=== PATIENT | female | born 1935 | race African-American/Black ===

== ENCOUNTER 2020-03-11 11:22 | Inpatient (IN) | payer MEDICARE, OTHER ==
[2020-03-11] VITALS (16 sets, daily range): BP systolic 99–190; BP diastolic 40–80
[~2020-03-11] VITALS: Ht 160 cm; Wt 102.5 kg
[2020-03-11] MEDS: NOREPINEPHRINE VIAL 32 MG in IV DEXTROSE 5% 218 ML IV PRN (11:17)
[~2020-03-11 11:22] MED LIST: ALPR0.5T PO; ASPI-630 PO; ATOR40TA59 PO; BENZ-8 PO; CARV3.1210 PO; CHOL500021 PO; FURO40TA4 PO; PANT20TA2 PO; POTA20TA4 PO; PROP15DR OU; SPIR25TA5 PO; TIMO5DRO26 OD
[2020-03-11] MEDS ORDERED: ATROPINE 0.5 MG/5 ML DISP.SYRINGE. IM ONE ×2 (11:43→11:50)
[2020-03-11] MEDS ORDERED: SODIUM BICARBONATE 50 MEQ/50 ML VIAL. ONE (12:00)
[2020-03-11] MEDS ORDERED: DEXTROSE 50% 25 GM / 50ML DISP.SYRIN. IV ONE (12:00)
[2020-03-11] MEDS ORDERED: CALCIUM CHLORIDE 1,000 MG/10 ML DISP.SYRIN ONE (12:00)
[2020-03-11] MEDS ORDERED: EPINEPHrine SYRINGE 1 MG/10 ML SYRINGE ONE (12:00)
[2020-03-11] MEDS: PHENYLEPHRINE INJ 50 MG in IV NORMAL SALINE 250ML 250 ML IV PRN ×2 (12:11→12:14)
--- NOTE | 2020-03-11 12:20 | RAD ---
Single view chest dated 03/11/2020. Comparison made to 03/09/2020. CLINICAL INDICATION: Intubation. FINDINGS: Single supine portable exam performed. Endotracheal tube tip at mid trachea, unchanged. There is an NG tube coiled in the left upper quadrant, likely within a hiatal hernia or prominent gastric fundus. There is a right-sided dialysis catheter in place, unchanged. There is perihilar airspace disease, mildly increased. There is also right-sided pleural effusion and/or pleural thickening at the right apex, unchanged. No pneumothorax. IMPRESSION: 1. Mild interval increase in bilateral airspace disease, edema versus pneumonia. 2. Right pleural effusion with loculated pleural fluid at the right apex, unchanged. 3. Stable position of lines. Electronically signed by: Demond Fink MD (03/11/2020 12:17 PM) [id number]
[2020-03-11 12:41] LABS: BASO # 0.1 x10^3/uL (0.0-0.2); BASO % 1 % (0-3); EOS # 0.1 x10^3/uL (0.0-0.7); EOS % 1 % (0-3); HEMATOCRIT 22.1 % (36.0-47.0); HEMOGLOBIN 7.2 g/dL (12.0-15.5); LYMPH # 2.1 x10^3/uL (1.0-4.8); LYMPH % 10 % (24-48); MEAN CORPUSCULAR HEMOGLOBIN 29 pg (25-35); MEAN CORPUSCULAR HGB CONC 32 g/dL (31-37); MEAN CORPUSCULAR VOLUME 90 fL (79-100); MONO % 5 % (0-9); NEUT # 18.2 x10^3/uL (1.8-7.7); NEUT % 84 % (31-73); PLATELET COUNT 63 x10^3/uL (140-400); RED BLOOD COUNT 2.45 x10^6/uL (3.50-5.40); WHITE BLOOD COUNT 21.5 x10^3/uL (4.0-11.0)
--- NOTE | 2020-03-11 12:52 | ED.ADGEN ---
Past Medical History Smoking Status: Never Smoker General Adult EDM: Chief Complaint: CPR/FULL ARREST HPI: HPI: Patient is an 85-year-old female who presents to the emergency room while being transported by EMS. Patient was being transferred to [facility] and coded on the way to the ambulance. Patient is in cardiac arrest upon arrival no further history is available Review of Systems: Review of Systems: Unable to obtain Current Medications: Current Medications Medications (Trade) Dose Ordered Sig/Any Start Time Stop Time Status Last Admin Dose Admin Norepinephrine Bitartrate 32 mg/ Dextrose 250 ml @ 0 mls/hr CONT PRN 03/11/20 12:45 Phenylephrine HCl 50 mg/Sodium Chloride 255 ml @ 12.24 mls/ hr CONT PRN 03/11/20 12:00 03/11/20 12:14 12.24 MLS/HR Allergies: Allergies: Allergies Coded Allergies Type Severity Reaction Last Updated Verified No Known Drug Allergies 02/23/20 No Physical Exam: PE: General: unresponsive, toxic appearing, CPR in progress, ET tube in place, severe anasarca HEENT: Normocephalic, atraumatic, no drainage from eyes Neck: Supple, atraumatic, trachea midline Cardiology: No radial/femoral pulses bilaterally, no heart sounds Pulmonary: Bilateral breath sounds Abdomen: soft, swelling Skin: intact, dry, cool Extremities: No deformities Neurology: nonresponsive, nonverbal, no movement, GCS 3 Current Patient Data: Labs: Laboratory Tests Test 03/11/20 12:23 White Blood Count 21.5 x10^3/uL (4.0-11.0) H Red Blood Count 2.45 x10^6/uL (3.50-5.40) L Hemoglobin 7.2 g/dL (12.0-15.5) L Hematocrit 22.1 % (36.0-47.0) L Mean Corpuscular Volume 90 fL (79-100) Mean Corpuscular Hemoglobin 29 pg (25-35) Mean Corpuscular Hemoglobin Concent 32 g/dL (31-37) Red Cell Distribution Width 17.0 % (11.5-14.5) H Platelet Count 63 x10^3/uL (140-400) L Neutrophils (%) (Auto) 84 % (31-73) H Lymphocytes (%) (Auto) 10 % (24-48) L Monocytes (%) (Auto) 5 % (0-9) Eosinophils (%) (Auto) 1 % (0-3) Basophils (%) (Auto) 1 % (0-3) Neutrophils # (Auto) 18.2 x10^3/uL (1.8-7.7) H Lymphocytes # (Auto) 2.1 x10^3/uL (1.0-4.8) Monocytes # (Auto) 1.0 x10^3/uL (0.0-1.1) Eosinophils # (Auto) 0.1 x10^3/uL (0.0-0.7) Basophils # (Auto) 0.1 x10^3/uL (0.0-0.2) Platelet Estimate Pending Laboratory Tests 03/11/20 12:23 Vital Signs: Vital Signs Date Time Temp Pulse Resp B/P (MAP) Pulse Ox O2 Delivery O2 Flow Rate FiO2 03/11/20 11:59 100 Ventilator EKG: EKG: [] Heart Score: Risk Factors: Risk Factors: DM, Current or recent (<one month) smoker, HTN, HLP, family history of CAD, obesity. Risk Scores: Score 0 - 3: 2.5% MACE over next 6 weeks - Discharge Home Score 4 - 6: 20.3% MACE over next 6 weeks - Admit for Clinical Observation Score 7 - 10: 72.7% MACE over next 6 weeks - Early Invasive Strategies Radiology/Procedures: Radiology/Procedures: [] Course & Med Decision Making: Course & Med Decision Making Pertinent Labs and Imaging studies reviewed. (See chart for details) Patient is a 85-year-old female who presents to the emergency room with CPR in progress. Patient was admitted 3 weeks ago and had a massive stroke. Neurology has evaluated her and feel that care is futile. CPR was performed here in the emergency room and she received 2 rounds of epinephrine, amiodarone, and was shocked once. She was in ventricular fibrillation upon arrival. We will continue her norepinephrine drip and then start phenylephrine. She was given atropine twice in the emergency room due to significant bradycardia. Patient was discussed with Dr. Garcia who will admit her back to the ICU Dragon Disclaimer: Dragon Disclaimer: This electronic medical record was generated, in whole or in part, using a voice recognition dictation system. Critical Care Time Critical Care: Authorized and Performed by: Levi Nazario MD Total critical care time: approximately 45 minutes Due to a high probability of clinically significant, life threatening deterioration, the patient required my highest level of preparedness to intervene emergently and I personally spent this critical care time directly and personally managing the patient. This critical care time included obtaining a history; examining the patient; pulse oximetry; ventilator management if necessary; ordering and review of studies; arranging urgent treatment with development of a management plan; evaluation of patient's response to treatment; frequent reassessment; discussion with patient/family; and, discussions with ot her providers. This critical care time was performed to assess and manage the high probability of imminent, life-threatening deterioration that could result in multi-organ failure. It was exclusive of separately billable procedures and treating other patients and teaching time. Please see MDM section and the rest of the note for further information on patient assessment and treatment. Departure Departure Impression: Primary Impression: Cardiac arrest Disposition: 09 ADMITTED INPT THIS HOSP Condition: IMPROVED Referrals: UNKNOWN PCP NAME (PCP) LEVI NAZARIO MD Mar 11, 2020 12:52
[2020-03-11 13:33] LABS: CALCIUM 7.9 mg/dL (8.5-10.1); CREATININE 3.6 mg/dL (0.6-1.0); GFR 14.5; POTASSIUM 4.9 mmol/L (3.5-5.1)
--- NOTE | 2020-03-11 14:00 | NUR ---
Pt admitted to room 103 from the ED, s/p code on discharge to [facility]. Pt is SR on the monitor, Levo and Martell infusing per IV pump. Pittman and Rectal tube in place. OG connected to low intermittent suction with bloody drainage. Right IJ central line in place and functioning. Family at the bedside.
[2020-03-11] MEDS ORDERED: INFLUENZA VAX SCREEN BY RX. MC ONE (14:45)
[2020-03-11 14:48] LABS: % BANDS 26 % (0-9); % EOS 1 % (0-5); % LYMPHS 14 % (24-48); % METAS 5 % (0-0); % MONOS 3 % (0-10); % MYELOS 2 % (0-0); % SEGS 49 % (35-66); NUCLEATED RBC 25
[2020-03-11 14:51] LABS: ANISOCYTOSIS SLIGHT; PLT ESTIMATE DECREASED (ADEQUATE); POLYCHROMASIA SLIGHT; SCHISTOCYTES FEW; TOXIC GRANULATION MOD; TOXIC VACUOLATION MOD
--- NOTE | 2020-03-11 15:00 | NUR ---
Dr. Luke notified of pts admission, no new orders received.
[2020-03-11] MEDS: fentaNYL PF VIAL 100 MCG/2 ML VIAL IVP PRN (15:16)
--- NOTE | 2020-03-11 15:30 | NUR ---
Dr. Bunn notified of consult, post code status with v-fib, and 2 pressors infusing. No new orders received.
[2020-03-11] MEDS ORDERED: PIP/TAZO PER PHARMACY MC PRN (16:15)
[2020-03-11] MEDS ORDERED: MINERAL OIL/PETROLATUM,WHITE OPHTH OINT 3.5GM TUBE. OU PRN (16:15)
[2020-03-11] MEDS ORDERED: POLYVINYL ALCOHOL 1.4% OPHTH SOLUTION 15ML BOTTLE. OU PRN (16:15)
[2020-03-11] MEDS ORDERED: EPINEPHrine VIAL 5 MG in IV NORMAL SALINE 250ML 250 ML IV PRN (16:15)
[2020-03-11] MEDS ORDERED: IV DEXTROSE 5% 250 ML BAG. IV PRN (16:15)
[2020-03-11 16:23] LABS: BASE EXCESS ABG -8 mmol/L (-3-3); HCO3 ABG 19 mmol/L (21-28); PCO2 ABG 40 mmHg (35-46); PO2 ABG 95 mmHg (65-108); SAT O2 ABG 96 % (92-99)
[2020-03-11 16:25] LABS: FIO2 ABG 60%
[2020-03-11] MEDS ORDERED: INSULIN LISPRO 300 UNITS/3 ML VIAL. SQ SCH (17:00)
[2020-03-11] MEDS: PIPERACILLIN/TAZOBACTAM 2.25 GM in IV NORMAL SALINE 50ML 50 ML IV SCH ×2 (18:13→22:32)
--- NOTE | 2020-03-11 18:38 | EKG ---
[facility] [address] [place] [address] Test Date: 2020-03-11 Test Time: 12:01:32 Pat Name: JORDAN JOSHI Department: Room: Gender: F Energy Efficiency Specialist: : [id number] Requested By: LEVI HOLLEY Order Number: [id number] Reading MD: Measurements Intervals [place] Rate: 54 P: OK: QRS: 129 QRSD: 68 T: 144 QT: 422 QTc: 402 Interpretive Statements IRREGULAR RHYTHM, NO P-WAVE FOUND ABNORMAL RIGHT AXIS DEVIATION LOW VOLTAGE CONSIDER RIGHT VENTRICULAR HYPERTROPHY QRS(T) CONTOUR ABNORMALITY CONSISTENT WITH ANTEROSEPTAL INFARCT AGE UNDETERMINED ST & T ABNORMALITY, CONSIDER HIGH LATERAL ISCHEMIA OR LEFT VENTRICULAR STRAIN ABNORMAL ECG RI6.02 No previous ECG available for comparison
[2020-03-11] MEDS: TIMOLOL 0.5% OPHTH SOLUTION 5ML BOTTLE. OD SCH (20:50)
[2020-03-11] MEDS ORDERED: BENZONATATE 100 MG CAPSULE. PO SCH (21:00)
[2020-03-11] MEDS ORDERED: LACTOBACILLUS RHAMNOSUS GG 1 CAPSULE. PO SCH (21:00)
[2020-03-12] VITALS (26 sets, daily range): BP systolic 91–164; BP diastolic 45–83
[2020-03-12] MEDS: NOREPINEPHRINE VIAL 32 MG in IV DEXTROSE 5% 218 ML IV PRN ×2 (00:13→23:59)
--- NOTE | 2020-03-12 05:49 | PDOC ---
PULMONARY PROGRESS NOTES DATE: 03/12/20 TIME: 05:40 Subjective had v fib in ambulance on her way to [facility] yesterday was taken to er on vent no sedation not responsive small ett secretion on levo Vitals Vital Signs Date Time Temp Pulse Resp B/P (MAP) Pulse Ox O2 Delivery O2 Flow Rate FiO2 03/12/20 05:00 86 27 131/60 (83) 100 Ventilator 03/12/20 04:00 98.0 98.0 03/11/20 11:22 15.0 Comments ros unable to do intubated not responsive HEENT: Other (nc at perrl nose clear orally intubated neck no lad no thyromegaly) Lungs: Crackles Cardiovascular: S1, S2 Abdomen: Soft, Non-tender, Other (no mass) Extremities: Other (++ edema) Skin: Warm Labs Laboratory Tests Test 03/11/20 12:23 03/11/20 12:32 03/11/20 13:12 03/11/20 16:25 White Blood Count 21.5 x10^3/uL (4.0-11.0) Red Blood Count 2.45 x10^6/uL (3.50-5.40) Hemoglobin 7.2 g/dL (12.0-15.5) Hematocrit 22.1 % (36.0-47.0) Mean Corpuscular Volume 90 fL (79-100) Mean Corpuscular Hemoglobin 29 pg (25-35) Mean Corpuscular Hemoglobin Concent 32 g/dL (31-37) Red Cell Distribution Width 17.0 % (11.5-14.5) Platelet Count 63 x10^3/uL (140-400) Neutrophils (%) (Auto) 84 % (31-73) Lymphocytes (%) (Auto) 10 % (24-48) Monocytes (%) (Auto) 5 % (0-9) Eosinophils (%) (Auto) 1 % (0-3) Basophils (%) (Auto) 1 % (0-3) Neutrophils # (Auto) 18.2 x10^3/uL (1.8-7.7) Lymphocytes # (Auto) 2.1 x10^3/uL (1.0-4.8) Monocytes # (Auto) 1.0 x10^3/uL (0.0-1.1) Eosinophils # (Auto) 0.1 x10^3/uL (0.0-0.7) Basophils # (Auto) 0.1 x10^3/uL (0.0-0.2) Segmented Neutrophils % 49 % (35-66) Band Neutrophils % 26 % (0-9) Lymphocytes % 14 % (24-48) Monocytes % 3 % (0-10) Eosinophils % 1 % (0-5) Metamyelocytes % 5 % (0-0) Myelocytes % 2 % (0-0) Nucleated Red Blood Cells 25 Toxic Granulation Mod Toxic Vacuolation Mod Platelet Estimate Decreased (ADEQUATE) Large Platelets Few Polychromasia Slight Anisocytosis Slight Schistocytes Few Mixed Venous Blood pH 7.19 Mixed Venous Blood PCO2 41 mmHg Mixed Venous Blood PO2 < 42 mmHg Mixed Venous Blood HCO3 16 mmol/L Mixed Venous Blood Base Excess -12 mmol/L Mixed Venous Blood O2 Saturation 61 % FiO2 100/vent 60% Sodium Level 130 mmol/L (136-145) Potassium Level 4.9 mmol/L (3.5-5.1) Chloride Level 91 mmol/L (98-107) Carbon Dioxide Level 20 mmol/L (21-32) Anion Gap 19 (6-14) Blood Urea Nitrogen 101 mg/dL (7-20) Creatinine 3.6 mg/dL (0.6-1.0) Estimated GFR (Cockcroft-Gault) 14.5 Glucose Level 224 mg/dL (70-99) Calcium Level 7.9 mg/dL (8.5-10.1) O2 Saturation 96 % (92-99) Arterial Blood pH 7.28 (7.35-7.45) Arterial Blood pCO2 at Patient Temp 40 mmHg (35-46) Arterial Blood pO2 at Patient Temp 95 mmHg (65-108) Arterial Blood HCO3 19 mmol/L (21-28) Arterial Blood Base Excess -8 mmol/L (-3-3) Test 03/11/20 17:13 Glucose (Fingerstick) 221 mg/dL (70-99) Laboratory Tests Test 03/11/20 12:23 03/11/20 12:32 03/11/20 13:12 03/11/20 16:25 White Blood Count 21.5 x10^3/uL (4.0-11.0) Red Blood Count 2.45 x10^6/uL (3.50-5.40) Hemoglobin 7.2 g/dL (12.0-15.5) Hematocrit 22.1 % (36.0-47.0) Mean Corpuscular Volume 90 fL (79-100) Mean Corpuscular Hemoglobin 29 pg (25-35) Mean Corpuscular Hemoglobin Concent 32 g/dL (31-37) Red Cell Distribution Width 17.0 % (11.5-14.5) Platelet Count 63 x10^3/uL (140-400) Neutrophils (%) (Auto) 84 % (31-73) Lymphocytes (%) (Auto) 10 % (24-48) Monocytes (%) (Auto) 5 % (0-9) Eosinophils (%) (Auto) 1 % (0-3) Basophils (%) (Auto) 1 % (0-3) Neutrophils # (Auto) 18.2 x10^3/uL (1.8-7.7) Lymphocytes # (Auto) 2.1 x10^3/uL (1.0-4.8) Monocytes # (Auto) 1.0 x10^3/uL (0.0-1.1) Eosinophils # (Auto) 0.1 x10^3/uL (0.0-0.7) Basophils # (Auto) 0.1 x10^3/uL (0.0-0.2) Segmented Neutrophils % 49 % (35-66) Band Neutrophils % 26 % (0-9) Lymphocytes % 14 % (24-48) Monocytes % 3 % (0-10) Eosinophils % 1 % (0-5) Metamyelocytes % 5 % (0-0) Myelocytes % 2 % (0-0) Nucleated Red Blood Cells 25 Toxic Granulation Mod Toxic Vacuolation Mod Platelet Estimate Decreased (ADEQUATE) Large Platelets Few Polychromasia Slight Anisocytosis Slight Schistocytes Few Mixed Venous Blood pH 7.19 Mixed Venous Blood PCO2 41 mmHg Mixed Venous Blood PO2 < 42 mmHg Mixed Venous Blood HCO3 16 mmol/L Mixed Venous Blood Base Excess -12 mmol/L Mixed Venous Blood O2 Saturation 61 % FiO2 100/vent 60% Sodium Level 130 mmol/L (136-145) Potassium Level 4.9 mmol/L (3.5-5.1) Chloride Level 91 mmol/L (98-107) Carbon Dioxide Level 20 mmol/L (21-32) Anion Gap 19 (6-14) Blood Urea Nitrogen 101 mg/dL (7-20) Creatinine 3.6 mg/dL (0.6-1.0) Estimated GFR (Cockcroft-Gault) 14.5 Glucose Level 224 mg/dL (70-99) Calcium Level 7.9 mg/dL (8.5-10.1) O2 Saturation 96 % (92-99) Arterial Blood pH 7.28 (7.35-7.45) Arterial Blood pCO2 at Patient Temp 40 mmHg (35-46) Arterial Blood pO2 at Patient Temp 95 mmHg (65-108) Arterial Blood HCO3 19 mmol/L (21-28) Arterial Blood Base Excess -8 mmol/L (-3-3) Test 03/11/20 17:13 Glucose (Fingerstick) 221 mg/dL (70-99) Medications Active Scripts Medications Dose Route/Sig Max Daily Dose Days Date Category Xanax (Alprazolam) 0.5 Mg Tablet 0.5 Mg PO HS 02/23/20 Reported D3-50 (Cholecalciferol (Vitamin D3)) 50,000 Unit Capsule 50,000 Unit PO 2X/WEEK 02/23/20 Reported Atorvastatin Calcium 40 Mg Tablet 40 Mg PO HS 02/23/20 Reported Furosemide 40 Mg Tablet 40 Mg PO DAILY 02/23/20 Reported Carvedilol (Carvedilol) 3.125 Mg Tablet 3.125 Mg PO BIDWMEALS 02/23/20 Reported Systane 0.3-0.4% Eye Drops (Propylene Glycol/Peg 400) 15 Ml Drops 1 Drop OU PRN Q2HR PRN 02/23/20 Reported Betimol (Timolol) 5 Ml Drops 1 Drop OD BID 02/23/20 Reported Benzonatate 100 Mg Capsule 100 Mg PO TID 02/23/20 Reported Protonix (Pantoprazole Sodium) 20 Mg Tablet.dr 20 Mg PO DAILY 02/23/20 Reported Spironolactone 25 Mg Tablet 25 Mg PO DAILY 02/23/20 Reported Aspirin 81 Mg Tab.chew 81 Mg PO DAILY 02/23/20 Reported Klor-Con M20 (Potassium Chloride) 20 Meq Tab.er.prt 20 Meq PO DAILY 02/23/20 Reported Comments cxr reviewed 1. Mild interval increase in bilateral airspace disease, edema versus pneumonia. 2. Right pleural effusion with loculated pleural fluid at the right apex, unchanged. ett ok Impression . Impression . IMPRESSION: Status post cardiopulmonary arrest, non-ST segment elevation MO. cp arrest at 2 am 03/05 11/7 s/p v fib Acute on chronic hypoxemic respiratory failure. CT chest revealing severe bronchiectasis, no evidence of lung masses. Acute on chronic exacerbation of bronchiectasis. Possible bacterial pneumonia. Elevated troponin and BNP. Acute on chronic renal failure. History of tobacco use in remission. Encephalopathy, possible anoxic COVID-19 negative Plan . Plan . Continue current vent support Fi02 40% and PEEP 5 CXR and ABG reviewed, no changes at this time Continue vasopressive medications to keep MAP above 60, off EPI remains on levo Follow nephrology recs -- began HD 03/07 -- remains on bicarb gtt ? need for hd Follow GI recs-- plan for PEG tube---on hold 2/2 hemodynamic instability Follow surgery recs- trach on hold 2/2 hemodynamic instability Follow ID recs for ABX Monitor LFT-- hypoxic hepatitis 2/2 cardiac arrest Follow neurology recs---Extensive scattered areas of acute infarction throughout the cerebral and cerebellar hemispheres, the largest of which is seen involving the left parietal lobe. Hypoperfusion from the cardiac event. Continue tube feeding for nutritional support to [facility] today DVT/GI prophylaxis:protonix/ of A/C 2/2 low plt count Discussed with RN and RT, very poor prognosis, no expected to survive SOTERO SWANSON MD Mar 12, 2020 05:48
[2020-03-12] MEDS: PIPERACILLIN/TAZOBACTAM 2.25 GM in IV NORMAL SALINE 50ML 50 ML IV SCH (05:50)
[2020-03-12] MEDS: fentaNYL PF VIAL 100 MCG/2 ML VIAL IVP PRN ×2 (07:16→19:55)
--- NOTE | 2020-03-12 07:30 | HP ---
ADMIT DATE: HISTORY OF PRESENT ILLNESS: The patient is an 85-year-old -[place] female patient who was accepted at [facility]. She presented to the Emergency Room while being transported by EMS. She was being transferred to [facility] and coded in the way to the ambulance. The patient was in cardiac arrest upon arrival and no further history at the time. She was basically resuscitated. CPR was performed in the Emergency Room and she received 2 rounds of epinephrine, amiodarone and was shocked once. She was in atrial fibrillation upon arrival. She was continued on epinephrine drip and started phenylephrine. She was given atropine twice in the Emergency Room due to significant bradycardia. The patient was basically admitted back again to the ICU to continue on mechanical ventilation, continue with pressor support, nutritional support. The patient was evaluated by neurologist and basically she has severe hypoxic encephalopathy and multiple infarcts. The care was futile; however, the family is not willing to change her code status. PAST MEDICAL HISTORY: Significant for hypertension, hyperlipidemia, type 2 diabetes mellitus, chronic obstructive pulmonary disease. She is also blind in her left eye and has blurred vision in the right eye. 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 On her previous admission, she coded twice and was diagnosed with non-ST segment elevation myocardial infarction and has been consistently intubated and mechanically ventilated. She also developed acute on chronic kidney injury that required hemodialysis. The patient was actually accepted at [facility] and was on her way there to continue with mechanical ventilation and hemodialysis; however, she unfortunately coded on her way and was taken from the ambulance to the Emergency Room of [facility]. PAST SURGICAL HISTORY: Significant for appendectomy, tonsillectomy, left hip surgery. ALLERGIES: She has no known drug allergies. FAMILY HISTORY: She has 4 sisters younger and she has 10 brothers. SOCIAL HISTORY: She is , has 2 sons and 1 daughter, 2 of her children . She quit smoking 31 years ago. Again, she was also a heavy drinker, but quit years ago. 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 Prior to admission, she used to live with her son. MEDICATIONS: She is currently on following medications: She is on Protonix 40 mg IV daily, aspirin 81 mg once a day, timolol maleate 1 drop to both eyes twice a day. She continues to be on Zosyn 2.25 grams IV every 8 hours. She is on Humalog insulin as insulin sliding scale every 6 hours. She is on epinephrine to maintain mean arterial pressure about 65 mmHg. She is on artificial tears 1 drop to both eyes every 15 minutes as needed. PHYSICAL EXAMINATION: GENERAL: When I saw her this morning, she was resting slightly propped up in bed. She was pale, but no jaundice, cyanosis or thyromegaly. No jugular venous distention, but generalized anasarca. VITAL SIGNS: Her heart rate was 90, blood pressure was 125/68, temperature was 98, respiratory rate was 30 and oxygen saturation was 100% on FiO2 of 60%. HEAD, EYES, EARS, NOSE AND THROAT: Showed normocephalic, atraumatic. NECK: Supple. She has orotracheal and orogastric tube in place. HEART: Showed normal first and second heart sounds. No gallop or murmur. CHEST: Clear to auscultation. No crepitation or rhonchi. ABDOMEN: Distended, soft, nontender. NEUROLOGIC: She is encephalopathic. She has so far 3 cardiac arrests and her MRI on her last admission showed that she has multiple scattered infarcts. LABORATORY DATA: Her lab work as of yesterday showed a white cell count of 21,500, hemoglobin 7.2, hematocrit 22, MCV 90 and platelet count of 63,000. Her chemistry showed a serum sodium 130, potassium 4.9, chloride 91, bicarbonate 20, anion gap of 19, BUN 101, creatinine was 3.6, estimated GFR was 14 mL per minute. Her glucose was 224 and calcium was 7.9. Her blood gases showed a pH of 7.28, her pCO2 of 40, pO2 of 95, bicarbonate 19 and oxygen saturation was 96% on FiO2 of 60%. ASSESSMENT AND PLAN: 1. In summary, this is an 85-year-old -[place] female patient with a third cardiac arrest from which she was successfully resuscitated. She coded while in the ambulance and immediately CPR was started and she was admitted through the Emergency Room where the CPR continued. She has received 2 rounds of epinephrine, amiodarone and was shocked once. She was in ventricular fibrillation upon arrival. She was continued on epinephrine and phenylephrine and she received atropine twice and was readmitted back to the ICU. 2. The patient has acute kidney injury for which she was on hemodialysis. 3. Chronic kidney disease, stage 2-3. 4. Hyponatremia with the serum sodium of 130 mEq per liter. 5. Hyperkalemia, resolved. 6. Acute respiratory failure. The patient continues to be intubated, mechanically ventilated. She is off sedation for more than 6 days now and she continued to be encephalopathic, likely severe anoxic encephalopathy as well as multiple infarcts. 7. Severe acidemia that has resolved. 8. Shock liver with markedly elevated liver enzymes that were trending down. Today's labs still pending. 9. The patient is hypotensive and continued to be on Levophed. 10. Given that she has been unstable and continued to be on pressor support, she is not a candidate for tracheostomy and gastrostomy tube placement. PLAN: To obviously continue with mechanical ventilation. Continue nutritional support. Continue with Levophed and epinephrine. We will repeat all her lab work and consult the mechanic helper as well as the farm operations manager. OLAF MAXWELL MD DR: DARIAN/nataly JOB#: [id number] / [id number]
[2020-03-12 07:39] LABS: BASO % 0 % (0-3); EOS # 0.1 x10^3/uL (0.0-0.7); EOS % 0 % (0-3); HEMATOCRIT 22.7 % (36.0-47.0); HEMOGLOBIN 7.4 g/dL (12.0-15.5); LYMPH # 1.4 x10^3/uL (1.0-4.8); LYMPH % 7 % (24-48); MEAN CORPUSCULAR HEMOGLOBIN 29 pg (25-35); MEAN CORPUSCULAR HGB CONC 33 g/dL (31-37); MEAN CORPUSCULAR VOLUME 89 fL (79-100); MONO # 1.2 x10^3/uL (0.0-1.1); MONO % 6 % (0-9); NEUT # 16.3 x10^3/uL (1.8-7.7); NEUT % 86 % (31-73); PLATELET COUNT 47 x10^3/uL (140-400); RED BLOOD COUNT 2.55 x10^6/uL (3.50-5.40); RED CELL DISTRIBUTION WIDTH 17.4 % (11.5-14.5)
[2020-03-12] MEDS: INSULIN LISPRO 300 UNITS/3 ML VIAL. SQ SCH ×3 (07:45→17:49)
[2020-03-12 08:12] LABS: ALBUMIN 1.8 g/dL (3.4-5.0); ALBUMIN/GLOBULIN RATIO 0.7 (1.0-1.7); CREATININE 3.7 mg/dL (0.6-1.0); GFR 14.1; POTASSIUM 4.8 mmol/L (3.5-5.1); TOTAL BILIRUBIN 3.2 mg/dL (0.2-1.0); TOTAL PROTEIN 4.3 g/dL (6.4-8.2)
--- NOTE | 2020-03-12 08:18 | PDOC ---
Infectious Disease Note Subjective: Subjective 85-year-old female who was accepted at [facility] ,transfer from [facility] ICU yesterday. She went into cardiac arrest on her way to the ambulance .CPR was performed at [facility] ED . She was resuscitated. Patient is readmitted back to [facility] ICU again, remains on mechanical ventilation. Unresponsive. Remains on pressure support. Vital Signs: Vital Signs Vital Signs Date Time Temp Pulse Resp B/P (MAP) Pulse Ox O2 Delivery O2 Flow Rate FiO2 03/12/20 07:16 28 100 Ventilator 03/12/20 07:00 84 131/55 (80) 03/12/20 04:00 98.0 98.0 03/11/20 11:22 15.0 Physical Exam: PHYSICAL EXAM GEN: Intubated, unresponsive HEENT: normocephalic atraumatic. ETT, NG tube in place. NECK: Supple. IJ HDC catheter in place. HEART: S1, S2. Tachycardia, no murmurs LUNGS: Decreased breath sounds at the bases with few crackles. ABDOMEN: Soft, nontender, nondistended. GENITOURINARY: Pittman removed rectal tube in place. EXTREMITIES: No cyanosis. + edema present NEUROLOGIC: Intubated. DERMATOLOGIC: Warm, dry. No generalized rash. Medications: Inpatient Meds: Current Medications Medications (Trade) Dose Ordered Sig/Any Start Time Stop Time Status Last Admin Dose Admin Aspirin (Aspirin Chewable) 81 mg [id number] 03/12/20 08:00 Atropine Sulfate (ATROPINE 0.5mg SYRINGE) 0.5 mg 1X ONCE 03/11/20 11:43 03/11/20 18:05 DC 03/11/20 11:43 0.5 MG Benzonatate (Tessalon Perle) 100 mg [id number] 03/11/20 21:00 03/11/20 16:13 DC Daptomycin 440 mg/ Sodium Chloride 50 ml @ 100 mls/hr QODAY 03/12/20 09:00 Dextrose (Dextrose 50%-Water Syringe) 12.5 gm PRN Q15MIN PRN 03/11/20 16:15 Dextrose (Iv Dextrose 5%) 250 ml PRN Q15MIN PRN 03/11/20 16:15 Epinephrine HCl 5 mg/Sodium Chloride 255 ml @ 32.956 mls/ hr CONT PRN 03/11/20 16:15 Ergocalciferol (Vitamin D2) 50,000 unit QSA 03/18/20 16:00 03/11/20 16:14 DC Fentanyl Citrate (Fentanyl 2ml Vial) 25 mcg PRN Q2HR PRN 03/11/20 15:00 03/12/20 07:16 25 MCG Glycerin/ Hypromellose/ Polyethylene (Artificial Tears) 1 drop PRN Q15MIN PRN 03/11/20 16:15 Info (FLU VACCINE SCREEN per RX) 1 each 1X ONCE 03/11/20 14:45 03/11/20 14:46 UNV Insulin Human Lispro (HumaLOG) 0-7 UNITS Q6HRS 03/12/20 07:45 Lactobacillus Rhamnosus (Culturelle) 1 cap BID 03/11/20 21:00 03/11/20 16:14 DC Multi-Ingred Cream/Lotion/Oil/ Oint (Artificial Tears Eye Ointment) 1 rebecca PRN Q1HR PRN 03/11/20 16:15 Norepinephrine Bitartrate 32 mg/ Dextrose 250 ml @ 0 mls/hr CONT PRN 03/11/20 12:45 03/12/20 00:13 7.573 MLS/HR Pantoprazole Sodium (PROTONIX VIAL for IV PUSH) 40 mg DAILY 03/12/20 09:00 Phenylephrine HCl 50 mg/Sodium Chloride 255 ml @ 12.24 mls/ hr CONT PRN 03/11/20 12:00 03/11/20 12:14 12.24 MLS/HR Piperacillin Sod/ Tazobactam Sod (Zosyn Per Pharmacy) 1 each PRN DAILY PRN 03/11/20 16:15 Piperacillin Sod/ Tazobactam Sod 2.25 gm/Sodium Chloride 50 ml @ 100 mls/hr Q8HRS 03/11/20 17:00 03/12/20 05:50 100 MLS/HR Timolol Maleate (Timoptic 0.5% [facility]) 1 drop BID 03/11/20 21:00 03/11/20 20:50 1 DROP Labs: Lab Laboratory Tests Test 03/11/20 12:23 03/11/20 12:32 03/11/20 13:12 03/11/20 16:25 White Blood Count 21.5 x10^3/uL (4.0-11.0) Red Blood Count 2.45 x10^6/uL (3.50-5.40) Hemoglobin 7.2 g/dL (12.0-15.5) Hematocrit 22.1 % (36.0-47.0) Mean Corpuscular Volume 90 fL (79-100) Mean Corpuscular Hemoglobin 29 pg (25-35) Mean Corpuscular Hemoglobin Concent 32 g/dL (31-37) Red Cell Distribution Width 17.0 % (11.5-14.5) Platelet Count 63 x10^3/uL (140-400) Neutrophils (%) (Auto) 84 % (31-73) Lymphocytes (%) (Auto) 10 % (24-48) Monocytes (%) (Auto) 5 % (0-9) Eosinophils (%) (Auto) 1 % (0-3) Basophils (%) (Auto) 1 % (0-3) Neutrophils # (Auto) 18.2 x10^3/uL (1.8-7.7) Lymphocytes # (Auto) 2.1 x10^3/uL (1.0-4.8) Monocytes # (Auto) 1.0 x10^3/uL (0.0-1.1) Eosinophils # (Auto) 0.1 x10^3/uL (0.0-0.7) Basophils # (Auto) 0.1 x10^3/uL (0.0-0.2) Segmented Neutrophils % 49 % (35-66) Band Neutrophils % 26 % (0-9) Lymphocytes % 14 % (24-48) Monocytes % 3 % (0-10) Eosinophils % 1 % (0-5) Metamyelocytes % 5 % (0-0) Myelocytes % 2 % (0-0) Nucleated Red Blood Cells 25 Toxic Granulation Mod Toxic Vacuolation Mod Platelet Estimate Decreased (ADEQUATE) Large Platelets Few Polychromasia Slight Anisocytosis Slight Schistocytes Few Mixed Venous Blood pH 7.19 Mixed Venous Blood PCO2 41 mmHg Mixed Venous Blood PO2 < 42 mmHg Mixed Venous Blood HCO3 16 mmol/L Mixed Venous Blood Base Excess -12 mmol/L Mixed Venous Blood O2 Saturation 61 % FiO2 100/vent 60% Sodium Level 130 mmol/L (136-145) Potassium Level 4.9 mmol/L (3.5-5.1) Chloride Level 91 mmol/L (98-107) Carbon Dioxide Level 20 mmol/L (21-32) Anion Gap 19 (6-14) Blood Urea Nitrogen 101 mg/dL (7-20) Creatinine 3.6 mg/dL (0.6-1.0) Estimated GFR (Cockcroft-Gault) 14.5 Glucose Level 224 mg/dL (70-99) Calcium Level 7.9 mg/dL (8.5-10.1) O2 Saturation 96 % (92-99) Arterial Blood pH 7.28 (7.35-7.45) Arterial Blood pCO2 at Patient Temp 40 mmHg (35-46) Arterial Blood pO2 at Patient Temp 95 mmHg (65-108) Arterial Blood HCO3 19 mmol/L (21-28) Arterial Blood Base Excess -8 mmol/L (-3-3) Test 03/11/20 17:13 03/12/20 07:00 Glucose (Fingerstick) 221 mg/dL (70-99) White Blood Count 19.0 x10^3/uL (4.0-11.0) Red Blood Count 2.55 x10^6/uL (3.50-5.40) Hemoglobin 7.4 g/dL (12.0-15.5) Hematocrit 22.7 % (36.0-47.0) Mean Corpuscular Volume 89 fL (79-100) Mean Corpuscular Hemoglobin 29 pg (25-35) Mean Corpuscular Hemoglobin Concent 33 g/dL (31-37) Red Cell Distribution Width 17.4 % (11.5-14.5) Platelet Count 47 x10^3/uL (140-400) Neutrophils (%) (Auto) 86 % (31-73) Lymphocytes (%) (Auto) 7 % (24-48) Monocytes (%) (Auto) 6 % (0-9) Eosinophils (%) (Auto) 0 % (0-3) Basophils (%) (Auto) 0 % (0-3) Neutrophils # (Auto) 16.3 x10^3/uL (1.8-7.7) Lymphocytes # (Auto) 1.4 x10^3/uL (1.0-4.8) Monocytes # (Auto) 1.2 x10^3/uL (0.0-1.1) Eosinophils # (Auto) 0.1 x10^3/uL (0.0-0.7) Basophils # (Auto) 0.0 x10^3/uL (0.0-0.2) Objective: Assessment: Status post cardiac arrest x3 , last March 11 Acute hypoxic respiratory failure intubated Non-STEMI Encephalopathy likely anoxic Extensive acute cerebral infarction Leukocytosis likely reactive Anemia status post blood transfusion Thrombocytopenia History of COPD with chronic hypoxic respiratory failure CT with the bronchiectatic changes SHERMAN on CKD on HD Electrolyte imbalance Severe protein calorie malnutrition History of dementia Skin breakdown at multiple areas Cephalic vein thrombosis left upper extremity Plan: Plan of Care Change Zosyn to Merrem Continue Daptomycin Start daptomycin C. difficile negative Leukocytosis has likely reactive component due to anemia, cephalic vein thrombosis Continue supportive care. local wound care Critically ill Overall prognosis very poor D/W Daughter and son at bedside Discussed with nursing staff VESNA HATCH MD Mar 12, 2020 08:18
[2020-03-12 08:42] LABS: BASE EXCESS ABG -6 mmol/L (-3-3); HCO3 ABG 19 mmol/L (21-28); PCO2 ABG 34 mmHg (35-46); PO2 ABG 134 mmHg (65-108); SAT O2 ABG 98 % (92-99)
[2020-03-12] MEDS: ASPIRIN CHEWABLE 81 MG TABLET. PO SCH (08:46)
[2020-03-12] MEDS: PANTOPRAZOLE IV PUSH 40 MG VIAL. IVP SCH (08:46)
[2020-03-12 08:52] LABS: FIO2 ABG 60/VENT
[2020-03-12] MEDS ORDERED: DAPTOmycin (GENERIC) IVPB 440 MG in IV NORMAL SALINE 50ML 50 ML IV SCH (09:00)
[2020-03-12] MEDS: MEROPENEM 500 MG in IV NORMAL SALINE 50ML 50 ML IV SCH (10:05)
--- NOTE | 2020-03-12 10:52 | PDOC ---
Provider Note Date of Service: DATE: 03/12/20 TIME: 10:51 Provider Note Reviewed events of yesterday and prior extensive chart notes. 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 (patient has no meaningful neurologic recovery at this time, lack of ST changes and no significant hemodynamic instability) I discussed with son and daughter at bedside. They will continue current ICU support. Pls call with any further questions. Justifications for Admission Other Justification TARA GARCIA MD Mar 12, 2020 10:52
--- NOTE | 2020-03-12 12:12 | PDOC ---
DATE OF SERVICE DATE: 03/12/20 TIME: 12:12 SUBJECTIVE ROS She was accepted at [facility] ,transferred from [facility] ICU yesterday. She went into cardiac arrest on her way to the ambulance .CPR was performed at [facility] ED . She was resuscitated. Patient is readmitted back to [facility] ICU again, remains on mechanical ventilation. Unresponsive , was on 2 pressors yesterday. Currently on one pressor OBJECTIVE Vital Signs Vital Signs Date Time Temp Pulse Resp B/P (MAP) Pulse Ox O2 Delivery O2 Flow Rate FiO2 03/12/20 11:38 98 Ventilator 03/12/20 11:00 90 27 120/61 (80) 03/12/20 08:00 97.8 97.8 03/11/20 11:22 15.0 I & 0 Intake and Output 03/12/20 06:59 Intake Total 701 ml Output Total 700 ml Balance 1 ml Intake IV Total 403 ml Other 298 ml Output Urine Total 0 ml Stool Total 700 ml PHYSICAL EXAM Physical Exam GEN: Intubated, unresponsive HEENT: ETT, NG tube in place. NECK: Supple. IJ HDC catheter in place. HEART: S1, S2. Tachycardia, no murmurs LUNGS: Decreased breath sounds at the bases with few crackles. ABDOMEN: Soft, nontender, nondistended. GENITOURINARY: Pittman removed ,rectal tube in place. EXTREMITIES: No cyanosis. + edema present NEUROLOGIC: Intubated. DERMATOLOGIC: Warm, dry. No generalized rash. DIAGNOSIS/ASSESSMENT Assessment & Plan SHERMAN -Initiated on HD , last HD was Dialysis today, discussed treatment plan with Rick Per Neurologist patient has no meaningful neurologic recovery at this time, Multiple discussions with family by all consultants and nursing staff, Family wants to continue aggressive care including Dialysis S/P third cardiac arrest - was in the process of being transferred to [facility] , resuscitated in [facility] ER and back in ICU Chronic kidney disease, stage 3 B/4 Hyponatremia with the serum sodium of 130 mEq per liter. Acute respiratory failure. intubated, mechanically ventilated. off sedation for more than 6 days now and she continued to be encephalopathic, likely severe anoxic encephalopathy as well as multiple infarcts. Shock liver with markedly elevated liver enzymes that were trending down. unstable and continued to be on pressor support,she is not a candidate for tracheostomy and gastrostomy tube placement. COMMENT/RELEVANT DATA Meds Current Medications Medications (Trade) Dose Ordered Sig/Any Start Time Stop Time Status Last Admin Dose Admin Aspirin (Aspirin Chewable) 81 mg [id number] 03/12/20 08:00 03/12/20 08:46 81 MG Atropine Sulfate (ATROPINE 0.5mg SYRINGE) 0.5 mg 1X ONCE 03/11/20 11:43 03/11/20 18:05 DC 03/11/20 11:43 0.5 MG Benzonatate (Tessalon Perle) 100 mg [id number] 03/11/20 21:00 03/11/20 16:13 DC Daptomycin 440 mg/ Sodium Chloride 50 ml @ 100 mls/hr QODAY 03/12/20 09:00 03/12/20 10:04 100 MLS/HR Dextrose (Dextrose 50%-Water Syringe) 12.5 gm PRN Q15MIN PRN 03/11/20 16:15 Dextrose (Iv Dextrose 5%) 250 ml PRN Q15MIN PRN 03/11/20 16:15 Epinephrine HCl 5 mg/Sodium Chloride 255 ml @ 32.956 mls/ hr CONT PRN 03/11/20 16:15 Ergocalciferol (Vitamin D2) 50,000 unit QSA 03/18/20 16:00 03/11/20 16:14 DC Fentanyl Citrate (Fentanyl 2ml Vial) 25 mcg PRN Q2HR PRN 03/11/20 15:00 03/12/20 07:16 25 MCG Glycerin/ Hypromellose/ Polyethylene (Artificial Tears) 1 drop PRN Q15MIN PRN 03/11/20 16:15 Info (FLU VACCINE SCREEN per RX) 1 each 1X ONCE 03/11/20 14:45 03/11/20 14:46 UNV Insulin Human Lispro (HumaLOG) 0-7 UNITS Q6HRS 03/12/20 07:45 Lactobacillus Rhamnosus (Culturelle) 1 cap BID 03/11/20 21:00 03/11/20 16:14 DC Meropenem 500 mg/ Sodium Chloride 50 ml @ 100 mls/hr DAILY 03/12/20 10:00 03/12/20 10:05 100 MLS/HR Micafungin Sodium 100 mg/Dextrose 100 ml @ 100 mls/hr Q24H 03/12/20 10:00 Multi-Ingred Cream/Lotion/Oil/ Oint (Artificial Tears Eye Ointment) 1 rebecca PRN Q1HR PRN 03/11/20 16:15 Norepinephrine Bitartrate 32 mg/ Dextrose 250 ml @ 0 mls/hr CONT PRN 03/11/20 12:45 03/12/20 00:13 7.573 MLS/HR Pantoprazole Sodium (PROTONIX VIAL for IV PUSH) 40 mg DAILY 03/12/20 09:00 03/12/20 08:46 40 MG Phenylephrine HCl 50 mg/Sodium Chloride 255 ml @ 12.24 mls/ hr CONT PRN 03/11/20 12:00 03/11/20 12:14 12.24 MLS/HR Piperacillin Sod/ Tazobactam Sod (Zosyn Per Pharmacy) 1 each PRN DAILY PRN 03/11/20 16:15 Piperacillin Sod/ Tazobactam Sod 2.25 gm/Sodium Chloride 50 ml @ 100 mls/hr Q8HRS 03/11/20 17:00 03/12/20 09:18 DC 03/12/20 05:50 100 MLS/HR Timolol Maleate (Timoptic 0.5% [facility]) 1 drop BID 03/11/20 21:00 03/11/20 20:50 1 DROP Lab Laboratory Tests Test 03/11/20 12:23 03/11/20 12:32 03/11/20 13:12 03/11/20 16:25 White Blood Count 21.5 x10^3/uL (4.0-11.0) Red Blood Count 2.45 x10^6/uL (3.50-5.40) Hemoglobin 7.2 g/dL (12.0-15.5) Hematocrit 22.1 % (36.0-47.0) Mean Corpuscular Volume 90 fL (79-100) Mean Corpuscular Hemoglobin 29 pg (25-35) Mean Corpuscular Hemoglobin Concent 32 g/dL (31-37) Red Cell Distribution Width 17.0 % (11.5-14.5) Platelet Count 63 x10^3/uL (140-400) Neutrophils (%) (Auto) 84 % (31-73) Lymphocytes (%) (Auto) 10 % (24-48) Monocytes (%) (Auto) 5 % (0-9) Eosinophils (%) (Auto) 1 % (0-3) Basophils (%) (Auto) 1 % (0-3) Neutrophils # (Auto) 18.2 x10^3/uL (1.8-7.7) Lymphocytes # (Auto) 2.1 x10^3/uL (1.0-4.8) Monocytes # (Auto) 1.0 x10^3/uL (0.0-1.1) Eosinophils # (Auto) 0.1 x10^3/uL (0.0-0.7) Basophils # (Auto) 0.1 x10^3/uL (0.0-0.2) Segmented Neutrophils % 49 % (35-66) Band Neutrophils % 26 % (0-9) Lymphocytes % 14 % (24-48) Monocytes % 3 % (0-10) Eosinophils % 1 % (0-5) Metamyelocytes % 5 % (0-0) Myelocytes % 2 % (0-0) Nucleated Red Blood Cells 25 Toxic Granulation Mod Toxic Vacuolation Mod Platelet Estimate Decreased (ADEQUATE) Large Platelets Few Polychromasia Slight Anisocytosis Slight Schistocytes Few Mixed Venous Blood pH 7.19 Mixed Venous Blood PCO2 41 mmHg Mixed Venous Blood PO2 < 42 mmHg Mixed Venous Blood HCO3 16 mmol/L Mixed Venous Blood Base Excess -12 mmol/L Mixed Venous Blood O2 Saturation 61 % FiO2 100/vent 60% Sodium Level 130 mmol/L (136-145) Potassium Level 4.9 mmol/L (3.5-5.1) Chloride Level 91 mmol/L (98-107) Carbon Dioxide Level 20 mmol/L (21-32) Anion Gap 19 (6-14) Blood Urea Nitrogen 101 mg/dL (7-20) Creatinine 3.6 mg/dL (0.6-1.0) Estimated GFR (Cockcroft-Gault) 14.5 Glucose Level 224 mg/dL (70-99) Calcium Level 7.9 mg/dL (8.5-10.1) O2 Saturation 96 % (92-99) Arterial Blood pH 7.28 (7.35-7.45) Arterial Blood pCO2 at Patient Temp 40 mmHg (35-46) Arterial Blood pO2 at Patient Temp 95 mmHg (65-108) Arterial Blood HCO3 19 mmol/L (21-28) Arterial Blood Base Excess -8 mmol/L (-3-3) Test 03/11/20 17:13 03/12/20 07:00 03/12/20 08:00 Glucose (Fingerstick) 221 mg/dL (70-99) White Blood Count 19.0 x10^3/uL (4.0-11.0) Red Blood Count 2.55 x10^6/uL (3.50-5.40) Hemoglobin 7.4 g/dL (12.0-15.5) Hematocrit 22.7 % (36.0-47.0) Mean Corpuscular Volume 89 fL (79-100) Mean Corpuscular Hemoglobin 29 pg (25-35) Mean Corpuscular Hemoglobin Concent 33 g/dL (31-37) Red Cell Distribution Width 17.4 % (11.5-14.5) Platelet Count 47 x10^3/uL (140-400) Neutrophils (%) (Auto) 86 % (31-73) Lymphocytes (%) (Auto) 7 % (24-48) Monocytes (%) (Auto) 6 % (0-9) Eosinophils (%) (Auto) 0 % (0-3) Basophils (%) (Auto) 0 % (0-3) Neutrophils # (Auto) 16.3 x10^3/uL (1.8-7.7) Lymphocytes # (Auto) 1.4 x10^3/uL (1.0-4.8) Monocytes # (Auto) 1.2 x10^3/uL (0.0-1.1) Eosinophils # (Auto) 0.1 x10^3/uL (0.0-0.7) Basophils # (Auto) 0.0 x10^3/uL (0.0-0.2) Sodium Level 132 mmol/L (136-145) Potassium Level 4.8 mmol/L (3.5-5.1) Chloride Level 92 mmol/L (98-107) Carbon Dioxide Level 24 mmol/L (21-32) Anion Gap 16 (6-14) Blood Urea Nitrogen 108 mg/dL (7-20) Creatinine 3.7 mg/dL (0.6-1.0) Estimated GFR (Cockcroft-Gault) 14.1 BUN/Creatinine Ratio 29 (6-20) Glucose Level 175 mg/dL (70-99) Calcium Level 8.0 mg/dL (8.5-10.1) Total Bilirubin 3.2 mg/dL (0.2-1.0) Aspartate Amino Transf (AST/SGOT) 323 U/L (15-37) Alanine Aminotransferase (ALT/SGPT) 1494 U/L (14-59) Alkaline Phosphatase 285 U/L (46-116) Total Protein 4.3 g/dL (6.4-8.2) Albumin 1.8 g/dL (3.4-5.0) Albumin/Globulin Ratio 0.7 (1.0-1.7) O2 Saturation 98 % (92-99) Arterial Blood pH 7.35 (7.35-7.45) Arterial Blood pCO2 at Patient Temp 34 mmHg (35-46) Arterial Blood pO2 at Patient Temp 134 mmHg (65-108) Arterial Blood HCO3 19 mmol/L (21-28) Arterial Blood Base Excess -6 mmol/L (-3-3) FiO2 60/vent Results All relevant outside records, renal labs, imaging studies, telemetry/EKG's were reviewed. Justicifation of Admission Dx: Justifications for Admission: Justification of Admission Dx: Yes SHAHRAM GARCIA MD Mar 12, 2020 12:12
[2020-03-12] MEDS: TIMOLOL 0.5% OPHTH SOLUTION 5ML BOTTLE. OD SCH ×2 (12:14→20:35)
[2020-03-12] MEDS: MICAFUNGIN 100 MG in IV DEXTROSE 5% 100ML 100 ML IV SCH (12:15)
[2020-03-12] MEDS ORDERED: DIALYSIS PATIENT. MC PRN (15:30)
[2020-03-12] MEDS ORDERED: ALBUMIN HUMAN 25% 200 ML IV PRN (15:30)
[2020-03-12] MEDS ORDERED: ATROPINE 0.5 MG/5 ML DISP.SYRINGE. ONE (17:03)
--- NOTE | 2020-03-12 17:17 | NUR ---
During dialysis pt blood pressure was unable to be obtained. Levo was increased and Martell was restarted. Pt was laid flat at this time. Towards the end of the blood return Heart rate began to slow down and epi drip restarted too. Blood pressure at 1707 was 103/74 with a heart rate of 86.
[2020-03-12] MEDS: EPINEPHrine VIAL 10 MG in IV NORMAL SALINE 250ML 250 ML IV PRN (19:00)
[2020-03-12] MEDS ORDERED: MIDAZOLAM HCL 50 MG in IV NORMAL SALINE 50ML 50 ML IV PRN (19:15)
[2020-03-12] MEDS: MIDAZOLAM 100mg/100ml NS BAG 100 ML IV PRN (19:21)
--- NOTE | 2020-03-12 19:23 | NUR ---
Daughter has agreed to give the patient some sedation. Daughter thinks mother is uncomfortable and this nurse explained that the pt is not in synch with vent and that the high peak pressures are very uncomfortable to the pt. Daughter asked to please get pt some sedation. Conversation exchanged in front of FRANCES Valencia who is taking over for the pt.
[2020-03-12] MEDS ORDERED: ATROPINE 0.5 MG/5 ML DISP.SYRINGE. IV ONE (19:30)
[2020-03-13] VITALS (16 sets, daily range): BP systolic 32–199; BP diastolic 8–96
[2020-03-13] MEDS: INSULIN LISPRO 300 UNITS/3 ML VIAL. SQ SCH ×4 (00:38→17:39)
[2020-03-13] MEDS: fentaNYL PF VIAL 100 MCG/2 ML VIAL IVP PRN ×2 (00:54→04:39)
[2020-03-13] MEDS ORDERED: EPINEPHrine 1 MG/ML VIAL ONE (04:45)
[2020-03-13] MEDS ORDERED: EPINEPHrine SYRINGE 1 MG/10 ML SYRINGE IV PRN (04:45)
[2020-03-13] MEDS: MIDAZOLAM 100mg/100ml NS BAG 100 ML IV PRN (06:45)
[2020-03-13 06:55] LABS: CREATININE 3.7 mg/dL (0.6-1.0); GFR 14.1
--- NOTE | 2020-03-13 08:17 | PDOC ---
PULMONARY PROGRESS NOTES DATE: 03/13/20 TIME: 08:17 Subjective Recurrent cardiac arrest most recent v-fib rrest on 03/11/20 remains on vent support Multiple pressors, Epi,levo, and phen Vitals Vital Signs Date Time Temp Pulse Resp B/P (MAP) Pulse Ox O2 Delivery O2 Flow Rate FiO2 03/13/20 07:00 102 32 89 Ventilator 03/13/20 04:00 98.8 98.8 Comments ros unable to do intubated not responsive HEENT: Other (nc at perrl nose clear orally intubated neck no lad no thyromegaly) Lungs: Crackles Cardiovascular: S1, S2 Abdomen: Soft, Non-tender, Other (no mass) Extremities: Other Skin: Warm Labs Laboratory Tests Test 03/11/20 12:23 03/11/20 12:32 03/11/20 13:12 03/11/20 16:25 White Blood Count 21.5 x10^3/uL (4.0-11.0) Red Blood Count 2.45 x10^6/uL (3.50-5.40) Hemoglobin 7.2 g/dL (12.0-15.5) Hematocrit 22.1 % (36.0-47.0) Mean Corpuscular Volume 90 fL (79-100) Mean Corpuscular Hemoglobin 29 pg (25-35) Mean Corpuscular Hemoglobin Concent 32 g/dL (31-37) Red Cell Distribution Width 17.0 % (11.5-14.5) Platelet Count 63 x10^3/uL (140-400) Neutrophils (%) (Auto) 84 % (31-73) Lymphocytes (%) (Auto) 10 % (24-48) Monocytes (%) (Auto) 5 % (0-9) Eosinophils (%) (Auto) 1 % (0-3) Basophils (%) (Auto) 1 % (0-3) Neutrophils # (Auto) 18.2 x10^3/uL (1.8-7.7) Lymphocytes # (Auto) 2.1 x10^3/uL (1.0-4.8) Monocytes # (Auto) 1.0 x10^3/uL (0.0-1.1) Eosinophils # (Auto) 0.1 x10^3/uL (0.0-0.7) Basophils # (Auto) 0.1 x10^3/uL (0.0-0.2) Segmented Neutrophils % 49 % (35-66) Band Neutrophils % 26 % (0-9) Lymphocytes % 14 % (24-48) Monocytes % 3 % (0-10) Eosinophils % 1 % (0-5) Metamyelocytes % 5 % (0-0) Myelocytes % 2 % (0-0) Nucleated Red Blood Cells 25 Toxic Granulation Mod Toxic Vacuolation Mod Platelet Estimate Decreased (ADEQUATE) Large Platelets Few Polychromasia Slight Anisocytosis Slight Schistocytes Few Mixed Venous Blood pH 7.19 Mixed Venous Blood PCO2 41 mmHg Mixed Venous Blood PO2 < 42 mmHg Mixed Venous Blood HCO3 16 mmol/L Mixed Venous Blood Base Excess -12 mmol/L Mixed Venous Blood O2 Saturation 61 % FiO2 100/vent 60% Sodium Level 130 mmol/L (136-145) Potassium Level 4.9 mmol/L (3.5-5.1) Chloride Level 91 mmol/L (98-107) Carbon Dioxide Level 20 mmol/L (21-32) Anion Gap 19 (6-14) Blood Urea Nitrogen 101 mg/dL (7-20) Creatinine 3.6 mg/dL (0.6-1.0) Estimated GFR (Cockcroft-Gault) 14.5 Glucose Level 224 mg/dL (70-99) Calcium Level 7.9 mg/dL (8.5-10.1) O2 Saturation 96 % (92-99) Arterial Blood pH 7.28 (7.35-7.45) Arterial Blood pCO2 at Patient Temp 40 mmHg (35-46) Arterial Blood pO2 at Patient Temp 95 mmHg (65-108) Arterial Blood HCO3 19 mmol/L (21-28) Arterial Blood Base Excess -8 mmol/L (-3-3) Test 03/11/20 17:13 03/12/20 07:00 03/12/20 08:00 03/12/20 12:18 Glucose (Fingerstick) 221 mg/dL (70-99) 160 mg/dL (70-99) White Blood Count 19.0 x10^3/uL (4.0-11.0) Red Blood Count 2.55 x10^6/uL (3.50-5.40) Hemoglobin 7.4 g/dL (12.0-15.5) Hematocrit 22.7 % (36.0-47.0) Mean Corpuscular Volume 89 fL (79-100) Mean Corpuscular Hemoglobin 29 pg (25-35) Mean Corpuscular Hemoglobin Concent 33 g/dL (31-37) Red Cell Distribution Width 17.4 % (11.5-14.5) Platelet Count 47 x10^3/uL (140-400) Neutrophils (%) (Auto) 86 % (31-73) Lymphocytes (%) (Auto) 7 % (24-48) Monocytes (%) (Auto) 6 % (0-9) Eosinophils (%) (Auto) 0 % (0-3) Basophils (%) (Auto) 0 % (0-3) Neutrophils # (Auto) 16.3 x10^3/uL (1.8-7.7) Lymphocytes # (Auto) 1.4 x10^3/uL (1.0-4.8) Monocytes # (Auto) 1.2 x10^3/uL (0.0-1.1) Eosinophils # (Auto) 0.1 x10^3/uL (0.0-0.7) Basophils # (Auto) 0.0 x10^3/uL (0.0-0.2) Sodium Level 132 mmol/L (136-145) Potassium Level 4.8 mmol/L (3.5-5.1) Chloride Level 92 mmol/L (98-107) Carbon Dioxide Level 24 mmol/L (21-32) Anion Gap 16 (6-14) Blood Urea Nitrogen 108 mg/dL (7-20) Creatinine 3.7 mg/dL (0.6-1.0) Estimated GFR (Cockcroft-Gault) 14.1 BUN/Creatinine Ratio 29 (6-20) Glucose Level 175 mg/dL (70-99) Calcium Level 8.0 mg/dL (8.5-10.1) Total Bilirubin 3.2 mg/dL (0.2-1.0) Aspartate Amino Transf (AST/SGOT) 323 U/L (15-37) Alanine Aminotransferase (ALT/SGPT) 1494 U/L (14-59) Alkaline Phosphatase 285 U/L (46-116) Total Protein 4.3 g/dL (6.4-8.2) Albumin 1.8 g/dL (3.4-5.0) Albumin/Globulin Ratio 0.7 (1.0-1.7) O2 Saturation 98 % (92-99) Arterial Blood pH 7.35 (7.35-7.45) Arterial Blood pCO2 at Patient Temp 34 mmHg (35-46) Arterial Blood pO2 at Patient Temp 134 mmHg (65-108) Arterial Blood HCO3 19 mmol/L (21-28) Arterial Blood Base Excess -6 mmol/L (-3-3) FiO2 60/vent Test 03/12/20 17:42 03/12/20 23:57 03/13/20 06:35 03/13/20 06:40 Glucose (Fingerstick) 171 mg/dL (70-99) 182 mg/dL (70-99) 235 mg/dL (70-99) Sodium Level 131 mmol/L (136-145) Potassium Level 5.0 mmol/L (3.5-5.1) Chloride Level 93 mmol/L (98-107) Carbon Dioxide Level 20 mmol/L (21-32) Anion Gap 18 (6-14) Blood Urea Nitrogen 106 mg/dL (7-20) Creatinine 3.7 mg/dL (0.6-1.0) Estimated GFR (Cockcroft-Gault) 14.1 Glucose Level 223 mg/dL (70-99) Calcium Level 8.0 mg/dL (8.5-10.1) Laboratory Tests Test 03/12/20 12:18 03/12/20 17:42 03/12/20 23:57 03/13/20 06:35 Glucose (Fingerstick) 160 mg/dL (70-99) 171 mg/dL (70-99) 182 mg/dL (70-99) 235 mg/dL (70-99) Test 03/13/20 06:40 Sodium Level 131 mmol/L (136-145) Potassium Level 5.0 mmol/L (3.5-5.1) Chloride Level 93 mmol/L (98-107) Carbon Dioxide Level 20 mmol/L (21-32) Anion Gap 18 (6-14) Blood Urea Nitrogen 106 mg/dL (7-20) Creatinine 3.7 mg/dL (0.6-1.0) Estimated GFR (Cockcroft-Gault) 14.1 Glucose Level 223 mg/dL (70-99) Calcium Level 8.0 mg/dL (8.5-10.1) Medications Active Scripts Medications Dose Route/Sig Max Daily Dose Days Date Category Xanax (Alprazolam) 0.5 Mg Tablet 0.5 Mg PO HS 02/23/20 Reported D3-50 (Cholecalciferol (Vitamin D3)) 50,000 Unit Capsule 50,000 Unit PO 2X/WEEK 02/23/20 Reported Atorvastatin Calcium 40 Mg Tablet 40 Mg PO HS 02/23/20 Reported Furosemide 40 Mg Tablet 40 Mg PO DAILY 02/23/20 Reported Carvedilol (Carvedilol) 3.125 Mg Tablet 3.125 Mg PO BIDWMEALS 02/23/20 Reported Systane 0.3-0.4% Eye Drops (Propylene Glycol/Peg 400) 15 Ml Drops 1 Drop OU PRN Q2HR PRN 02/23/20 Reported Betimol (Timolol) 5 Ml Drops 1 Drop OD BID 02/23/20 Reported Benzonatate 100 Mg Capsule 100 Mg PO TID 02/23/20 Reported Protonix (Pantoprazole Sodium) 20 Mg Tablet.dr 20 Mg PO DAILY 02/23/20 Reported Spironolactone 25 Mg Tablet 25 Mg PO DAILY 02/23/20 Reported Aspirin 81 Mg Tab.chew 81 Mg PO DAILY 02/23/20 Reported Klor-Con M20 (Potassium Chloride) 20 Meq Tab.er.prt 20 Meq PO DAILY 02/23/20 Reported Comments cxr reviewed 1. Mild interval increase in bilateral airspace disease, edema versus pneumonia. 2. Right pleural effusion with loculated pleural fluid at the right apex, unchanged. ett ok Impression . IMPRESSION: Status post cardiopulmonary arrest, non-ST segment elevation VT. cp arrest at 2 am 03/05 11/7 s/p v fib Acute on chronic hypoxemic respiratory failure. CT chest revealing severe bronchiectasis, no evidence of lung masses. Acute on chronic exacerbation of bronchiectasis. Possible bacterial pneumonia. Elevated troponin and BNP. Acute on chronic renal failure-- now on HD History of tobacco use in remission. Encephalopathy, possible anoxic COVID-19 negative Thrombocytopenia Plan . Continue current vent support Fi02 40% and PEEP 5 CXR reviewed Continue vasopressive medications to keep MAP above 60, Follow nephrology recs -- HD Follow GI recs-- plan for PEG tube---on hold 2/2 hemodynamic instability Follow surgery recs- trach on hold 2/2 hemodynamic instability Follow ID recs for ABX : Nereyda, Rafael, and Dapto Follow neurology recs---Extensive scattered areas of acute infarction throughout the cerebral and cerebellar hemispheres, the largest of which is seen involving the left parietal lobe. Hypoperfusion from the cardiac event. Continue tube feeding for nutritional support DVT/GI prophylaxis:protonix/ of A/C 2/2 low plt count Discussed with RN and RT, very poor prognosis, no expected to survive, remains FULL code per family Critical Care time [id number] am AMADEO FUENTES MD Mar 13, 2020 08:17
[2020-03-13] MEDS: EPINEPHrine VIAL 10 MG in IV NORMAL SALINE 250ML 250 ML IV PRN ×5 (08:29→22:06)
--- NOTE | 2020-03-13 08:45 | PN ---
DATE: 03/13/2020 SUBJECTIVE: The patient is intubated, sedated, mechanically ventilated. She has maximum dose of epinephrine and Levophed. She is maintaining her oxygen saturation 100% on FiO2 of 60%. She is completely anuric. OBJECTIVE: GENERAL: On examining her, she was pale, but no jaundice, cyanosis or thyromegaly. No jugular venous distention, but generalized anasarca. VITAL SIGNS: Her heart rate was 112, blood pressure was 126/64, temperature was 98.8, and oxygen saturation was 100% on FiO2 of 60%. HEENT: Showed normocephalic, atraumatic. She has orotracheal and orogastric tube in place. NECK: Supple. CARDIAC: Normal first and second heart sounds. No gallop or murmur. CHEST: Shows central trachea, equal bilateral chest expansion, air entry, vesicular sounds. I could not appreciate any crepitation or rhonchi anteriorly. ABDOMEN: Distended, soft, nontender. NEUROLOGIC: She is encephalopathic. Her intake over the last 24 hours was 750. She has no urine output. LABORATORY DATA: Her lab work this morning showed a white cell count of 19,000, hemoglobin 7.4, hematocrit 22.7, MCV 89 and platelet count 47,000. Her chemistry showed a serum sodium 131, potassium 5, chloride 93, bicarbonate 20, anion gap of 18, BUN 106, creatinine 3.7, estimated GFR was 14 mL per minute. Her glucose was 123 and calcium was 8. Her blood gases showed a pH of 7.35, pCO2 of 34, pO2 of 134, bicarbonate 19 and oxygen saturation was 98% on FiO2 of 60%. ASSESSMENT: 1. This is an 85-year-old -[place] female patient with a third cardiac arrest for which she was successfully resuscitated at the Emergency Room, she was on her way to [facility], she has received 2 rounds of epinephrine, amiodarone and was shocked once. She was in ventricular fibrillation. Upon arrival, she was continued on epinephrine and she is now on maximum Levophed and epinephrine. She continued to have episodes of bradycardia. 2. The patient has an acute kidney injury for which she was on hemodialysis and that showed she is stable enough to be dialyzed. 3. Chronic kidney disease stage 2 to 3. 4. Hyponatremia with a serum sodium 131 mEq per liter. 4. Hyperkalemia, resolved. 5. Acute respiratory failure. The patient continues to be intubated, mechanically ventilated and sedated on Versed; however, she was off sedation for almost 6 days; however, she continued to be encephalopathic, likely due to severe anoxic encephalopathy as well as multiple infarcts. 6. Severe acidemia has resolved. 7. Shock liver with markedly elevated liver enzymes are trending down. 8. The patient is hypotensive. Continue to maximum dose of Levophed and epinephrine. 9. given that she has been unstable and continued to be on pressor support she is not a candidate for tracheostomy and gastrostomy tube placement. PLAN: To continue obviously with mechanical ventilation. Continue nutritional support. Continue with Levophed and epinephrine. Her overall prognosis is extremely poor for any meaningful recovery. OLAF MAXWELL MD DR: DARIAN/nataly JOB#: [id number] / [id number]
--- NOTE | 2020-03-13 08:49 | PDOC ---
PROGRESS NOTES Date of Service DATE: 03/13/20 TIME: 08:47 Assessment Problems Medical Problems: (1) Cardiac arrest Status: Acute She was being transferred to [facility] on 03/11 and had another CODE BLUE while going through the emergency department here. Another CODE BLUE 03/05 night, now on pressors Extensive scattered areas of acute infarction throughout the cerebral and cerebellar hemispheres, the largest of which is seen involving the left parietal lobe. Hypoperfusion from the cardiac event. She has now had 2 CODE BLUEs, anoxic en cephalopathy. History of dementia and Lc Bonnet syndrome EEG shows diffuse slowing, suspect from anoxic encephalopathy, no epileptic activity Dialysis started, unable to tolerate due to hypotension Plan This is futile care. Daughter's mind unchanged. I explained to daughter and son that patient is actively dying, daughter still wants full code, son defers to his sister Continue current ICU care Not a candidate for aggressive stroke work-up and treatment given the very poor overall prognosis Subjective None Objective Vital Signs Date Time Temp Pulse Resp B/P (MAP) Pulse Ox O2 Delivery O2 Flow Rate FiO2 03/13/20 07:00 102 32 89 Ventilator 03/13/20 04:00 98.8 98.8 Intake and Output 03/13/20 07:00 Intake Total 2004 ml Output Total 0 ml Balance 2004 ml Intake IV Total 671 ml Tube Feeding 1333 ml Output Urine Total 0 ml Gastric Drainage Total 0 ml PHYSICAL EXAM Intubated Left cornea clouded, right pupil minimally reactive Moves head to pain EOMI. CN: no focal findings. Muscle tone: normal. Muscle strength: Slight withdrawal to pain DTR: 1+ Plantar reflex: Silent Gait: not examined Sensory exam: Not cooperative. Cerebellar: Not cooperative Review of Relevant I have reviewed the following items [place] (where applicable) has been applied. Labs Laboratory Tests Test 03/11/20 12:23 03/11/20 12:32 03/11/20 13:12 03/11/20 16:25 White Blood Count 21.5 x10^3/uL (4.0-11.0) Red Blood Count 2.45 x10^6/uL (3.50-5.40) Hemoglobin 7.2 g/dL (12.0-15.5) Hematocrit 22.1 % (36.0-47.0) Mean Corpuscular Volume 90 fL (79-100) Mean Corpuscular Hemoglobin 29 pg (25-35) Mean Corpuscular Hemoglobin Concent 32 g/dL (31-37) Red Cell Distribution Width 17.0 % (11.5-14.5) Platelet Count 63 x10^3/uL (140-400) Neutrophils (%) (Auto) 84 % (31-73) Lymphocytes (%) (Auto) 10 % (24-48) Monocytes (%) (Auto) 5 % (0-9) Eosinophils (%) (Auto) 1 % (0-3) Basophils (%) (Auto) 1 % (0-3) Neutrophils # (Auto) 18.2 x10^3/uL (1.8-7.7) Lymphocytes # (Auto) 2.1 x10^3/uL (1.0-4.8) Monocytes # (Auto) 1.0 x10^3/uL (0.0-1.1) Eosinophils # (Auto) 0.1 x10^3/uL (0.0-0.7) Basophils # (Auto) 0.1 x10^3/uL (0.0-0.2) Segmented Neutrophils % 49 % (35-66) Band Neutrophils % 26 % (0-9) Lymphocytes % 14 % (24-48) Monocytes % 3 % (0-10) Eosinophils % 1 % (0-5) Metamyelocytes % 5 % (0-0) Myelocytes % 2 % (0-0) Nucleated Red Blood Cells 25 Toxic Granulation Mod Toxic Vacuolation Mod Platelet Estimate Decreased (ADEQUATE) Large Platelets Few Polychromasia Slight Anisocytosis Slight Schistocytes Few Mixed Venous Blood pH 7.19 Mixed Venous Blood PCO2 41 mmHg Mixed Venous Blood PO2 < 42 mmHg Mixed Venous Blood HCO3 16 mmol/L Mixed Venous Blood Base Excess -12 mmol/L Mixed Venous Blood O2 Saturation 61 % FiO2 100/vent 60% Sodium Level 130 mmol/L (136-145) Potassium Level 4.9 mmol/L (3.5-5.1) Chloride Level 91 mmol/L (98-107) Carbon Dioxide Level 20 mmol/L (21-32) Anion Gap 19 (6-14) Blood Urea Nitrogen 101 mg/dL (7-20) Creatinine 3.6 mg/dL (0.6-1.0) Estimated GFR (Cockcroft-Gault) 14.5 Glucose Level 224 mg/dL (70-99) Calcium Level 7.9 mg/dL (8.5-10.1) O2 Saturation 96 % (92-99) Arterial Blood pH 7.28 (7.35-7.45) Arterial Blood pCO2 at Patient Temp 40 mmHg (35-46) Arterial Blood pO2 at Patient Temp 95 mmHg (65-108) Arterial Blood HCO3 19 mmol/L (21-28) Arterial Blood Base Excess -8 mmol/L (-3-3) Test 03/11/20 17:13 03/12/20 07:00 03/12/20 08:00 03/12/20 12:18 Glucose (Fingerstick) 221 mg/dL (70-99) 160 mg/dL (70-99) White Blood Count 19.0 x10^3/uL (4.0-11.0) Red Blood Count 2.55 x10^6/uL (3.50-5.40) Hemoglobin 7.4 g/dL (12.0-15.5) Hematocrit 22.7 % (36.0-47.0) Mean Corpuscular Volume 89 fL (79-100) Mean Corpuscular Hemoglobin 29 pg (25-35) Mean Corpuscular Hemoglobin Concent 33 g/dL (31-37) Red Cell Distribution Width 17.4 % (11.5-14.5) Platelet Count 47 x10^3/uL (140-400) Neutrophils (%) (Auto) 86 % (31-73) Lymphocytes (%) (Auto) 7 % (24-48) Monocytes (%) (Auto) 6 % (0-9) Eosinophils (%) (Auto) 0 % (0-3) Basophils (%) (Auto) 0 % (0-3) Neutrophils # (Auto) 16.3 x10^3/uL (1.8-7.7) Lymphocytes # (Auto) 1.4 x10^3/uL (1.0-4.8) Monocytes # (Auto) 1.2 x10^3/uL (0.0-1.1) Eosinophils # (Auto) 0.1 x10^3/uL (0.0-0.7) Basophils # (Auto) 0.0 x10^3/uL (0.0-0.2) Sodium Level 132 mmol/L (136-145) Potassium Level 4.8 mmol/L (3.5-5.1) Chloride Level 92 mmol/L (98-107) Carbon Dioxide Level 24 mmol/L (21-32) Anion Gap 16 (6-14) Blood Urea Nitrogen 108 mg/dL (7-20) Creatinine 3.7 mg/dL (0.6-1.0) Estimated GFR (Cockcroft-Gault) 14.1 BUN/Creatinine Ratio 29 (6-20) Glucose Level 175 mg/dL (70-99) Calcium Level 8.0 mg/dL (8.5-10.1) Total Bilirubin 3.2 mg/dL (0.2-1.0) Aspartate Amino Transf (AST/SGOT) 323 U/L (15-37) Alanine Aminotransferase (ALT/SGPT) 1494 U/L (14-59) Alkaline Phosphatase 285 U/L (46-116) Total Protein 4.3 g/dL (6.4-8.2) Albumin 1.8 g/dL (3.4-5.0) Albumin/Globulin Ratio 0.7 (1.0-1.7) O2 Saturation 98 % (92-99) Arterial Blood pH 7.35 (7.35-7.45) Arterial Blood pCO2 at Patient Temp 34 mmHg (35-46) Arterial Blood pO2 at Patient Temp 134 mmHg (65-108) Arterial Blood HCO3 19 mmol/L (21-28) Arterial Blood Base Excess -6 mmol/L (-3-3) FiO2 60/vent Test 03/12/20 17:42 03/12/20 23:57 03/13/20 06:35 03/13/20 06:40 Glucose (Fingerstick) 171 mg/dL (70-99) 182 mg/dL (70-99) 235 mg/dL (70-99) Sodium Level 131 mmol/L (136-145) Potassium Level 5.0 mmol/L (3.5-5.1) Chloride Level 93 mmol/L (98-107) Carbon Dioxide Level 20 mmol/L (21-32) Anion Gap 18 (6-14) Blood Urea Nitrogen 106 mg/dL (7-20) Creatinine 3.7 mg/dL (0.6-1.0) Estimated GFR (Cockcroft-Gault) 14.1 Glucose Level 223 mg/dL (70-99) Calcium Level 8.0 mg/dL (8.5-10.1) Laboratory Tests Test 03/12/20 12:18 03/12/20 17:42 03/12/20 23:57 03/13/20 06:35 Glucose (Fingerstick) 160 mg/dL (70-99) 171 mg/dL (70-99) 182 mg/dL (70-99) 235 mg/dL (70-99) Test 03/13/20 06:40 Sodium Level 131 mmol/L (136-145) Potassium Level 5.0 mmol/L (3.5-5.1) Chloride Level 93 mmol/L (98-107) Carbon Dioxide Level 20 mmol/L (21-32) Anion Gap 18 (6-14) Blood Urea Nitrogen 106 mg/dL (7-20) Creatinine 3.7 mg/dL (0.6-1.0) Estimated GFR (Cockcroft-Gault) 14.1 Glucose Level 223 mg/dL (70-99) Calcium Level 8.0 mg/dL (8.5-10.1) Medications Current Medications Phenylephrine HCl 50 mg/Sodium Chloride 255 ml @ 12.24 mls/ hr CONT PRN IV SEE I/O RECORD Last administered on 03/11/20at 12:14; Start 03/11/20 at 12:00 Norepinephrine Bitartrate 32 mg/ Dextrose 250 ml @ 0 mls/hr CONT PRN IV PER PROTOCOL Last administered on 03/12/20at 23:59; Start 03/11/20 at 12:45 Info (FLU VACCINE SCREEN per RX) 1 each 1X ONCE MC ; Start 03/11/20 at 14:45; Stop 03/11/20 at 14:46; Status UNV Fentanyl Citrate (Fentanyl 2ml Vial) 25 mcg PRN Q2HR PRN IVP PAIN Last administered on 03/13/20at 04:39; Start 03/11/20 at 15:00 Benzonatate (Tessalon Perle) 100 mg [id number] PO ; Start 03/11/20 at 21:00; Stop 03/11/20 at 16:13; Status DC Lactobacillus Rhamnosus (Culturelle) 1 cap BID PO ; Start 03/11/20 at 21:00; Stop 03/11/20 at 16:14; Status DC Ergocalciferol (Vitamin D2) 50,000 unit QTU PO ; Start 03/14/20 at 16:00; Stop 03/11/20 at 16:13; Status DC Ergocalciferol (Vitamin D2) 50,000 unit QSA PO ; Start 03/18/20 at 16:00; Stop 03/11/20 at 16:14; Status DC Aspirin (Aspirin Chewable) 81 mg [id number] PO Last administered on 03/12/20at 08:46; Start 03/12/20 at 08:00 Glycerin/ Hypromellose/ Polyethylene (Artificial Tears) 1 drop PRN Q15MIN PRN OU DRY EYE, 2ND CHOICE; Start 03/11/20 at 16:15 Multi-Ingred Cream/Lotion/Oil/ Oint (Artificial Tears Eye Ointment) 1 rebecca PRN Q1HR PRN OU DRY EYE 1ST CHOICE; Start 03/11/20 at 16:15 Timolol Maleate (Timoptic 0.5% Oph) 1 drop BID OD Last administered on 03/12/20at 20:35; Start 03/11/20 at 21:00 Piperacillin Sod/ Tazobactam Sod (Zosyn Per Pharmacy) 1 each PRN DAILY PRN MC SEE COMMENTS; Start 03/11/20 at 16:15; Stop 03/13/20 at 08:20; Status DC Pantoprazole Sodium (PROTONIX VIAL for IV PUSH) 40 mg DAILY IVP Last administered on 03/12/20at 08:46; Start 03/12/20 at 09:00 Epinephrine HCl 5 mg/Sodium Chloride 255 ml @ 32.956 mls/ hr CONT PRN IV SEE I/O RECORD; Start 03/11/20 at 16:15; Status Cancel Insulin Human Lispro (HumaLOG) 0-7 UNITS TIDWMEALS SQ Last administered on 03/11/20at 18:16; Start 03/11/20 at 17:00; Stop 03/12/20 at 07:34; Status DC Dextrose (Dextrose 50%-Water Syringe) 12.5 gm PRN Q15MIN PRN IV SEE COMMENTS; Start 03/11/20 at 16:15 Dextrose (Iv Dextrose 5%) 250 ml PRN Q15MIN PRN IV SEE COMMENTS; Start 03/11/20 at 16:15 Piperacillin Sod/ Tazobactam Sod 2.25 gm/Sodium Chloride 50 ml @ 100 mls/hr Q8HRS IV Last administered on 03/12/20at 05:50; Start 03/11/20 at 17:00; Stop 03/12/20 at 09:18; Status DC Atropine Sulfate (ATROPINE 0.5mg SYRINGE) 0.5 mg 1X ONCE IM Last administered on 03/11/20at 11:50; Start 03/11/20 at 11:50; Stop 03/11/20 at 18:05; Status DC Atropine Sulfate (ATROPINE 0.5mg SYRINGE) 0.5 mg 1X ONCE IM Last administered on 03/11/20at 11:43; Start 03/11/20 at 11:43; Stop 03/11/20 at 18:05; Status DC Daptomycin 440 mg/ Sodium Chloride 50 ml @ 100 mls/hr QODAY IV Last administered on 03/12/20at 10:04; Start 03/12/20 at 09:00 Insulin Human Lispro (HumaLOG) 0-7 UNITS Q6HRS SQ Last administered on 03/13/20at 06:44; Start 03/12/20 at 07:45 Micafungin Sodium 100 mg/Dextrose 100 ml @ 100 mls/hr Q24H IV Last administered on 03/12/20at 12:15; Start 03/12/20 at 10:00 Meropenem 500 mg/ Sodium Chloride 50 ml @ 100 mls/hr DAILY IV Last administered on 03/12/20at 10:05; Start 03/12/20 at 10:00 Albumin Human 200 ml @ 200 mls/hr 1X PRN PRN IV Hypotension; Start 03/12/20 at 15:30; Stop 03/12/20 at 21:29; Status DC Info (PHARMACY MONITORING -- do not chart) 1 each PRN DAILY PRN MC SEE COMMENTS; Start 03/12/20 at 15:30 Atropine Sulfate (ATROPINE 0.5mg SYRINGE) 0.5 mg STK-MED ONCE .ROUTE ; Start 03/12/20 at 17:03; Stop 03/12/20 at 17:03; Status DC Midazolam HCl 50 mg/Sodium Chloride 50 ml @ 1 mls/hr CONT PRN IV SEE I/O RECORD; Start 03/12/20 at 19:15; Stop 03/12/20 at 19:12; Status DC Midazolam HCl 100 ml @ 0 mls/hr CONT PRN IV SEE PROTOCOL Last administered on 03/13/20at 06:45; Start 03/12/20 at 19:15 Atropine Sulfate (ATROPINE 0.5mg SYRINGE) 0.5 mg 1X ONCE IV Last administered on 03/12/20at 19:35; Start 03/12/20 at 19:30; Stop 03/12/20 at 19:32; Status DC Epinephrine HCl 10 mg/Sodium Chloride 260 ml @ 16.349 mls/ hr CONT PRN IV SEE I/O RECORD Last administered on 03/13/20at 08:29; Start 03/12/20 at 20:00 Epinephrine HCl (Adrenalin) 1 mg STK-MED ONCE .ROUTE ; Start 03/13/20 at 04:45; Stop 03/13/20 at 04:46; Status DC Epinephrine HCl (EPINEPHrine SYRINGE) 1 mg PRN Q1HR PRN IV BRADYCARDIA; Start 03/13/20 at 04:45 Active Scripts Active Reported Xanax (Alprazolam) 0.5 Mg Tablet 0.5 Mg PO HS D3-50 (Cholecalciferol (Vitamin D3)) 50,000 Unit Capsule 50,000 Unit PO 2X/WEEK Atorvastatin Calcium 40 Mg Tablet 40 Mg PO HS Furosemide 40 Mg Tablet 40 Mg PO DAILY Carvedilol (Carvedilol) 3.125 Mg Tablet 3.125 Mg PO BIDWMEALS Systane 0.3-0.4% Eye Drops (Propylene Glycol/Peg 400) 15 Ml Drops 1 Drop OU PRN Q2HR PRN Betimol (Timolol) 5 Ml Drops 1 Drop OD BID Benzonatate 100 Mg Capsule 100 Mg PO TID Protonix (Pantoprazole Sodium) 20 Mg Tablet.dr 20 Mg PO DAILY Spironolactone 25 Mg Tablet 25 Mg PO DAILY Aspirin 81 Mg Tab.chew 81 Mg PO DAILY Klor-Con M20 (Potassium Chloride) 20 Meq Tab.er.prt 20 Meq PO DAILY Vitals/I & O Vital Sign - Last 24 Hours 03/12/20 03/12/20 03/12/20 03/12/20 09:00 10:00 11:00 11:38 Pulse 84 85 90 Resp 27 27 27 B/P (MAP) 107/50 (69) 119/52 (74) 120/61 (80) Pulse Ox 100 100 100 98 O2 Delivery Ventilator Ventilator Ventilator Ventilator 03/12/20 03/12/20 03/12/20 03/12/20 12:00 12:00 13:00 13:18 Temp 97.9 97.9 Pulse 91 88 Resp 27 27 B/P (MAP) 122/67 (85) 127/68 (87) Pulse Ox 100 100 98 O2 Delivery Mechanical Ventilator Ventilator Ventilator Ventilator 03/12/20 03/12/20 03/12/20 03/12/20 14:00 15:00 16:00 16:00 Temp 97.7 97.7 Pulse 93 92 92 Resp 27 27 27 B/P (MAP) 124/60 (81) 105/54 (71) 91/54 (66) Pulse Ox 97 97 97 O2 Delivery Ventilator Ventilator Mechanical Ventilator Ventilator 03/12/20 03/12/20 03/12/20 03/12/20 16:15 17:00 18:00 19:00 Pulse 86 104 76 Resp 27 27 28 B/P (MAP) 103/74 (84) 132/67 (88) Pulse Ox 98 96 100 96 O2 Delivery Ventilator Ventilator Ventilator Ventilator 03/12/20 03/12/20 03/12/20 03/12/20 19:15 19:30 19:45 20:00 Pulse 80 104 Resp 28 28 B/P (MAP) Pulse Ox 98 100 O2 Delivery Ventilator Ventilator Mechanical Ventilator 03/12/20 03/12/20 03/12/20 03/12/20 20:00 20:15 20:30 20:34 Temp 98.0 98.0 Pulse 110 Resp 28 B/P (MAP) 158/65 (96) 164/83 (110) 152/68 (96) Pulse Ox 100 O2 Delivery Ventilator Ventilator 03/12/20 03/12/20 03/12/20 03/12/20 20:45 21:00 21:00 22:00 Pulse 106 98 Resp 28 28 B/P (MAP) 126/58 (80) 122/59 (80) 116/55 (75) Pulse Ox 100 100 100 O2 Delivery Ventilator Ventilator Ventilator 03/12/20 03/12/20 03/13/20 03/13/20 23:00 23:30 00:00 00:00 Temp 98.8 98.8 Pulse 103 104 Resp 28 40 B/P (MAP) 100/45 (63) 80/43 (55) Pulse Ox 100 100 100 O2 Delivery Ventilator Ventilator Mechanical Ventilator Ventilator 03/13/20 03/13/20 03/13/20 03/13/20 00:15 00:30 00:45 00:54 Pulse 100 70 98 B/P (MAP) 83/41 (55) 118/48 (71) 122/63 (82) Pulse Ox 95 O2 Delivery Ventilator 03/13/20 03/13/20 03/13/20 03/13/20 01:00 01:15 01:30 01:41 Pulse 113 104 104 Resp 34 B/P (MAP) 132/54 (80) 191/91 (124) 154/68 (96) Pulse Ox 99 O2 Delivery Ventilator Ventilator 03/13/20 03/13/20 03/13/20 03/13/20 01:45 02:00 02:15 03:00 Pulse 104 99 98 101 Resp 28 28 B/P (MAP) 154/62 (92) 135/59 (84) 145/63 (90) 138/58 (84) Pulse Ox 100 100 O2 Delivery Ventilator Ventilator 03/13/20 03/13/20 03/13/20 03/13/20 04:00 04:00 04:00 04:30 Temp 98.8 98.8 Pulse 102 98 Resp 28 B/P (MAP) 147/65 (92) Pulse Ox 100 100 O2 Delivery Ventilator Ventilator Mechanical Ventilator 03/13/20 03/13/20 03/13/20 03/13/20 04:39 04:45 05:00 05:18 Pulse 96 102 Resp 28 B/P (MAP) 87/40 (56) 199/96 (130) Pulse Ox 100 O2 Delivery BiPAP/CPAP Ventilator Ventilator 03/13/20 03/13/20 06:00 07:00 Pulse 112 102 Resp 28 32 B/P (MAP) 126/64 (84) Pulse Ox 100 89 O2 Delivery Ventilator Ventilator Intake and Output 03/12/20 03/12/20 03/13/20 15:00 23:00 07:00 Intake Total 300 ml 737 ml 967 ml Output Total 0 ml 0 ml Balance 300 ml 737 ml 967 ml Justicifation of Admission Dx: Justifications for Admission: Justification of Admission Dx: Yes EARL CLAROS MD Mar 13, 2020 08:48
--- NOTE | 2020-03-13 09:00 | NUR ---
Notified MD of inability to read blood pressure via monitor and barely able to use doppler for pulses and manual blood pressure, will continue medications at current rate, will not turn patient due to instability. Family aware of the situation.
[2020-03-13] MEDS: MEROPENEM 500 MG in IV NORMAL SALINE 50ML 50 ML IV SCH (09:51)
[2020-03-13] MEDS: PANTOPRAZOLE IV PUSH 40 MG VIAL. IVP SCH (09:51)
[2020-03-13] MEDS: ASPIRIN CHEWABLE 81 MG TABLET. PO SCH (09:51)
[2020-03-13] MEDS: MICAFUNGIN 100 MG in IV DEXTROSE 5% 100ML 100 ML IV SCH (09:52)
[2020-03-13] MEDS: TIMOLOL 0.5% OPHTH SOLUTION 5ML BOTTLE. OD SCH ×2 (09:52→21:54)
[2020-03-13] MEDS: NOREPINEPHRINE VIAL 32 MG in IV DEXTROSE 5% 218 ML IV PRN ×2 (09:57→17:12)
--- NOTE | 2020-03-13 10:22 | NUR ---
SS following for discharge planning. SS reviewed pt chart and discussed with pt RN. Pt is currently on the vent at 60%. Pt on IV Meropenem, IV Micafungin, and IV Daptomycin. Pt CODED over the weekend while being transferred to [facility] via [facility] [place]. Pt on pressors and per RN last BP was 32/8. Family continues to request full aggressive care. SS will continue to follow as needed for discharge planning.
--- NOTE | 2020-03-13 11:38 | PDOC ---
Infectious Disease Note Subjective Subjective 85-year-old female who was accepted at [facility] ,transfer from [facility] ICU yesterday. She went into cardiac arrest on her way to the ambulance .CPR was performed at [facility] ED . She was resuscitated. Patient is readmitted back to [facility] ICU again, remains on mechanical ventilation. Unresponsive. Remains on pressure support. ROS ROS unable to do Vital Sign Vital Signs Vital Signs Date Time Temp Pulse Resp B/P (MAP) Pulse Ox O2 Delivery O2 Flow Rate FiO2 03/13/20 11:00 110 30 96 Ventilator 03/13/20 04:00 98.8 98.8 Physical Exam PHYSICAL EXAM GEN: Intubated, unresponsive HEENT: normocephalic atraumatic. ETT, NG tube in place. NECK: Supple. IJ HDC catheter in place. HEART: S1, S2. Tachycardia, no murmurs LUNGS: Decreased breath sounds at the bases with few crackles. ABDOMEN: Soft, nontender, nondistended. GENITOURINARY: Pittman removed rectal tube in place. EXTREMITIES: No cyanosis. + edema present NEUROLOGIC: Intubated. DERMATOLOGIC: Warm, dry. No generalized rash. Labs Lab Laboratory Tests Test 03/12/20 12:18 03/12/20 17:42 03/12/20 23:57 03/13/20 06:35 Glucose (Fingerstick) 160 mg/dL (70-99) 171 mg/dL (70-99) 182 mg/dL (70-99) 235 mg/dL (70-99) Test 03/13/20 06:40 Sodium Level 131 mmol/L (136-145) Potassium Level 5.0 mmol/L (3.5-5.1) Chloride Level 93 mmol/L (98-107) Carbon Dioxide Level 20 mmol/L (21-32) Anion Gap 18 (6-14) Blood Urea Nitrogen 106 mg/dL (7-20) Creatinine 3.7 mg/dL (0.6-1.0) Estimated GFR (Cockcroft-Gault) 14.1 Glucose Level 223 mg/dL (70-99) Calcium Level 8.0 mg/dL (8.5-10.1) Objective Assessment Status post cardiac arrest x3 , last March 11 Acute hypoxic respiratory failure intubated Non-STEMI Encephalopathy likely anoxic Extensive acute cerebral infarction Leukocytosis likely reactive Anemia status post blood transfusion Thrombocytopenia History of COPD with chronic hypoxic respiratory failure CT with the bronchiectatic changes SHERMAN on CKD on HD Electrolyte imbalance Severe protein calorie malnutrition History of dementia Skin breakdown at multiple areas Cephalic vein thrombosis left upper extremity Plan Plan of Care Merrem Continue Daptomycin micafungin C. difficile negative Leukocytosis has likely reactive component due to anemia, cephalic vein thrombosis Continue supportive care. local wound care Critically ill Overall prognosis very poor D/W Daughter and son at bedside Discussed with nursing staff BIRGIT HATCH MD Mar 13, 2020 11:38
--- NOTE | 2020-03-13 13:30 | PDOC ---
DATE OF SERVICE: DOS: DATE: 03/13/20 TIME: 13:28 SUBJECTIVE ROS Follow-up for SHERMAN/ATN Patient remains intubated sedated on the vent minimally responsive well with very low blood pressures. Patient's family refused to sign consent for dialysis given low blood pressure and inability to tolerated. OBJECTIVE Vital Signs Vital Signs Date Time Temp Pulse Resp B/P (MAP) Pulse Ox O2 Delivery O2 Flow Rate FiO2 03/13/20 13:00 113 28 97 Ventilator 03/13/20 12:00 98.9 98.9 I & 0 Intake and Output 03/13/20 07:00 Intake Total 2004 ml Output Total 0 ml Balance 2004 ml Intake IV Total 671 ml Tube Feeding 1333 ml Output Urine Total 0 ml Gastric Drainage Total 0 ml PHYSICAL EXAM Physical Exam GEN: Intubated, unresponsive HEENT: normocephalic atraumatic. ETT, NG tube in place. NECK: Supple. IJ HDC catheter in place. HEART: S1, S2. Tachycardia, no murmurs LUNGS: Decreased breath sounds at the bases with few crackles. ABDOMEN: Soft, nontender, nondistended. GENITOURINARY: Pittman removed rectal tube in place. EXTREMITIES: No cyanosis. + edema present NEUROLOGIC: Intubated. Unable to assess DERMATOLOGIC: Warm, dry. No generalized rash. DIAGNOSIS/ASSESSMENT Assessment & Plan SHERMAN/ATN: Patient has not been able to hemodynamically tolerate hemodialysis in the past. Patient's family at bedside have been informed regarding the high likelihood of demise if dialysis is attempted. They declined to consent to initiation of dialysis hence we will wait to see how they would like to proceed. Status post cardiac arrest, cardiogenic shock on the ventilator Severe hypotension and shock: Patient remains on maximum doses of 3 pressors. Current BP meds are barely measurable as discussed with the nurse Poor prognosis with impending demise COMMENT/RELEVANT DATA Meds Current Medications Medications (Trade) Dose Ordered Sig/Any Start Time Stop Time Status Last Admin Dose Admin Albumin Human 200 ml @ 200 mls/hr 1X PRN PRN 03/12/20 15:30 03/12/20 21:29 DC Aspirin (Aspirin Chewable) 81 mg [id number] 03/12/20 08:00 03/13/20 09:51 81 MG Atropine Sulfate (ATROPINE 0.5mg SYRINGE) 0.5 mg 1X ONCE 03/12/20 19:30 03/12/20 19:32 DC 03/12/20 19:35 0.5 MG Benzonatate (Tessalon Perle) 100 mg [id number] 03/11/20 21:00 03/11/20 16:13 DC Daptomycin 440 mg/ Sodium Chloride 50 ml @ 100 mls/hr QODAY 03/12/20 09:00 03/12/20 10:04 100 MLS/HR Dextrose (Dextrose 50%-Water Syringe) 12.5 gm PRN Q15MIN PRN 03/11/20 16:15 Dextrose (Iv Dextrose 5%) 250 ml PRN Q15MIN PRN 03/11/20 16:15 Epinephrine HCl (Adrenalin) 1 mg STK-MED ONCE 03/13/20 04:45 03/13/20 04:46 DC Epinephrine HCl (EPINEPHrine SYRINGE) 1 mg PRN Q1HR PRN 03/13/20 04:45 Epinephrine HCl 10 mg/Sodium Chloride 260 ml @ 16.349 mls/ hr CONT PRN 03/12/20 20:00 03/13/20 11:00 114.442 MLS/HR Epinephrine HCl 5 mg/Sodium Chloride 255 ml @ 32.956 mls/ hr CONT PRN 03/11/20 16:15 Cancel Ergocalciferol (Vitamin D2) 50,000 unit QSA 03/18/20 16:00 03/11/20 16:14 DC Fentanyl Citrate (Fentanyl 2ml Vial) 25 mcg PRN Q2HR PRN 03/11/20 15:00 03/13/20 04:39 25 MCG Glycerin/ Hypromellose/ Polyethylene (Artificial Tears) 1 drop PRN Q15MIN PRN 03/11/20 16:15 03/13/20 09:52 1 DROP Info (FLU VACCINE SCREEN per RX) 1 each 1X ONCE 03/11/20 14:45 03/11/20 14:46 UNV Info (PHARMACY MONITORING -- do not chart) 1 each PRN DAILY PRN 03/12/20 15:30 Insulin Human Lispro (HumaLOG) 0-7 UNITS Q6HRS 03/12/20 07:45 03/13/20 12:05 3 UNITS Lactobacillus Rhamnosus (Culturelle) 1 cap BID 03/11/20 21:00 03/11/20 16:14 DC Meropenem 500 mg/ Sodium Chloride 50 ml @ 100 mls/hr DAILY 03/12/20 10:00 03/13/20 09:51 100 MLS/HR Micafungin Sodium 100 mg/Dextrose 100 ml @ 100 mls/hr Q24H 03/12/20 10:00 03/13/20 09:52 100 MLS/HR Midazolam HCl 100 ml @ 0 mls/hr CONT PRN 03/12/20 19:15 03/13/20 06:45 5 MLS/HR Midazolam HCl 50 mg/Sodium Chloride 50 ml @ 1 mls/hr CONT PRN 03/12/20 19:15 03/12/20 19:12 DC Multi-Ingred Cream/Lotion/Oil/ Oint (Artificial Tears Eye Ointment) 1 rebecca PRN Q1HR PRN 03/11/20 16:15 Norepinephrine Bitartrate 32 mg/ Dextrose 250 ml @ 0 mls/hr CONT PRN 03/11/20 12:45 03/13/20 09:57 38.438 MLS/HR Pantoprazole Sodium (PROTONIX VIAL for IV PUSH) 40 mg DAILY 03/12/20 09:00 03/13/20 09:51 40 MG Phenylephrine HCl 50 mg/Sodium Chloride 255 ml @ 12.24 mls/ hr CONT PRN 03/11/20 12:00 03/11/20 12:14 12.24 MLS/HR Piperacillin Sod/ Tazobactam Sod (Zosyn Per Pharmacy) 1 each PRN DAILY PRN 03/11/20 16:15 03/13/20 08:20 DC Piperacillin Sod/ Tazobactam Sod 2.25 gm/Sodium Chloride 50 ml @ 100 mls/hr Q8HRS 03/11/20 17:00 03/12/20 09:18 DC 03/12/20 05:50 100 MLS/HR Timolol Maleate (Timoptic 0.5% [facility]) 1 drop BID 03/11/20 21:00 03/13/20 09:52 1 DROP Lab Laboratory Tests Test 03/12/20 17:42 03/12/20 23:57 03/13/20 06:35 03/13/20 06:40 Glucose (Fingerstick) 171 mg/dL (70-99) 182 mg/dL (70-99) 235 mg/dL (70-99) Sodium Level 131 mmol/L (136-145) Potassium Level 5.0 mmol/L (3.5-5.1) Chloride Level 93 mmol/L (98-107) Carbon Dioxide Level 20 mmol/L (21-32) Anion Gap 18 (6-14) Blood Urea Nitrogen 106 mg/dL (7-20) Creatinine 3.7 mg/dL (0.6-1.0) Estimated GFR (Cockcroft-Gault) 14.1 Glucose Level 223 mg/dL (70-99) Calcium Level 8.0 mg/dL (8.5-10.1) Test 03/13/20 12:04 Glucose (Fingerstick) 160 mg/dL (70-99) Results All relevant outside records, renal labs, imaging studies, telemetry/EKG's were reviewed. Justicifation of Admission Dx: Justifications for Admission: Justification of Admission Dx: Yes CHIDI HATCH MD Mar 13, 2020 13:30
[2020-03-13] MEDS ORDERED: AMIODARONE 150 MG/3 ML VIAL ONE (23:00)
[2020-03-13] MEDS ORDERED: ATROPINE 0.5 MG/5 ML DISP.SYRINGE. ONE (23:00)
[2020-03-13] MEDS ORDERED: EPINEPHrine SYRINGE 1 MG/10 ML SYRINGE ONE (23:00)
[2020-03-14] MEDS: INSULIN LISPRO 300 UNITS/3 ML VIAL. SQ SCH
[2020-03-14] MEDS: DEXTROSE 50% 25 GM / 50ML DISP.SYRIN. IV PRN ×2 (00:44→02:14)
[2020-03-14] MEDS ORDERED: SODIUM BICARB ADULT 8.4% 50 MEQ/50 ML DISP.SYRIN. ONE ×2 (03:00→03:49)
[2020-03-14 03:13] LABS: BASO # 0.1 x10^3/uL (0.0-0.2); BASO % 1 % (0-3); EOS # 0.1 x10^3/uL (0.0-0.7); EOS % 1 % (0-3); LYMPH % 6 % (24-48); MEAN CORPUSCULAR HEMOGLOBIN 30 pg (25-35); MEAN CORPUSCULAR HGB CONC 31 g/dL (31-37); MEAN CORPUSCULAR VOLUME 96 fL (79-100); MONO # 0.8 x10^3/uL (0.0-1.1); MONO % 5 % (0-9); NEUT # 15.3 x10^3/uL (1.8-7.7); NEUT % 88 % (31-73); PLATELET COUNT 26 x10^3/uL (140-400); RED BLOOD COUNT 1.59 x10^6/uL (3.50-5.40); RED CELL DISTRIBUTION WIDTH 19.9 % (11.5-14.5); WHITE BLOOD COUNT 17.3 x10^3/uL (4.0-11.0)
[2020-03-14 03:15] LABS: HEMATOCRIT 15.4 % (36.0-47.0); HEMOGLOBIN 4.8 g/dL (12.0-15.5)
[2020-03-14 03:29] LABS: ALBUMIN 1.5 g/dL (3.4-5.0); ALBUMIN/GLOBULIN RATIO 0.9 (1.0-1.7); CALCIUM 8.9 mg/dL (8.5-10.1); CREATININE 4.2 mg/dL (0.6-1.0); GFR 12.2; MAGNESIUM 2.7 mg/dL (1.8-2.4); TOTAL BILIRUBIN 3.5 mg/dL (0.2-1.0); TOTAL PROTEIN 3.1 g/dL (6.4-8.2)
[2020-03-14 03:32] LABS: POTASSIUM 7.5 mmol/L (3.5-5.1)
--- NOTE | 2020-03-14 04:59 | RAD ---
Study: CR PORTABLE CHEST 1V Indication: Post code. Comparison: 03/11/2020 Findings: Endotracheal tube tip approximately 1.5 cm above the dennis. Unchanged configuration of an enteric tube which is looped at the left lower chest with the sidehole at the level of the diaphragm and the tip just below the inferior field of view. Large bore central venous catheter positioning is unchanged likely approaching the superior cavoatrial junction. Loculated pleural fluid surrounds the right lung as was present on the comparison. Redemonstrated hazy opacification of the aerated right lung. Airspace opacities with a basilar predominance on the left has slightly worsened with more dense opacities approaching the costophrenic angle and medial aspect of the left hemidiaphragm. No pneumothorax. Unchanged cardiomediastinal silhouette. Impression: 1. Support device positioning as detailed in the body the report. 2. Redemonstrated loculated pleural fluid on the right and airspace disease of the right more so than left lungs. The extent of airspace opacification has slightly worsened at the basilar left lower lung. Otherwise the appearance of the chest is similar and there is no pneumothorax. Electronically signed by: SARAI CRAWLEY MD (03/14/2020 4:56 AM) [id number]
--- NOTE | 2020-03-14 05:55 | NUR ---
Patient went PEA on the monitor at 0238 this morning. CPR initiated at 0238. Patient bagged per ET tube by RT. At 0250, patients rhythm was sinus rhythm. Patients family notified of events at 0250 and son and daughter on their way to hospital. Patient went asystole at 0300. At 0302, patient was sinus rhythm. At 0305 patient went PEA and was coded until 0318 where she was sinus roberto carlos. Patient went PEA at 0333 and was coded until expiration at 0359 (called by ED physician). Family was present during time of . See code blue sheet for further information. Patient's family took all patient's belongings with them.
[2020-03-14] MEDS ORDERED: ERGOCALCIFEROL (VITAMIN D2) 50,000 UNIT CAPSULE. PO SCH (16:00)
--- NOTE | 2020-03-14 18:30 | PDOC5 ---
CODE REPORT CODE REPORT 85 yo F has medical history cardiogenic shock (on 2 pressors, was on 3) with diffuse anasarca and ATN on ESRD (last HD 2 days ago), became bradycardic and went into PEA arrest (around 3-4 am-see nursing document for specifics). ACLS was started. Patient was given epinephrine, calcium, bicarb and D50. Glucose was 75. Patient had bilateral breath sounds. RN informed me that patient prior to this arrrest, had a cough and gag, but was not moving any extremities. Patient had went into cardiac arrest 3 times on admission and family was well aware patient had poor prognosis. Patient was pending transfer to [facility]. Pt intubated, unable to be weaned from the vent. Last CT imaging of the brain was on February 23-unsure of any anoxic injury. Patient developed ROSC (approximately 30 minutes ACLS-see rn notes for specifics) and had sinus rhythm with first-degree AV block. End tidal during CPR around 35. I recommended repeat lab work including electrolytes, CT of the head and chest xray. Critical Care: Authorized and Performed by: Johnny Rosas DO Total critical care time: approximately 30 minutes Due to a high probability of clinically significant, life threatening deterioration, the patient required my highest level of preparedness to intervene emergently and I personally spent this critical care time directly and personally managing the patient. This critical care time included obtaining a history; examining the patient; pulse oximetry; ventilator management if necessary; ordering and review of studies; arranging urgent treatment with development of a management plan; evaluation of patient's response to treatment; frequent reassessment; discussion with patient/family; and, discussions with other providers. This critical care time was performed to assess and manage the high probability of imminent, life-threatening deterioration that could result in multi-organ failure. It was exclusive of separately billable procedures and treating other patients and teaching time. Please see MDM section and the rest of the note for further information on patient assessment and treatment. JOHNNY ROSAS DO Mar 14, 2020 18:30
--- NOTE | 2020-03-14 20:05 | PDOC5 ---
CODE REPORT CODE REPORT *This is second (late) code note* CODE BLUE was activated at 3:33 AM on 03/14/20, patient went into PEA cardiac arrest. I was recently in patient's room for cardiac arrest in the past hour. Patient with significant cardiogenic shock, maxed on 2 pressors, and end-stage renal disease, and hypoxic respiratory failure, unable to be weaned from vent. ACLS protocol was started and patient was treated with epinephrine, calcium and bicarb. Patient with bilateral breath sounds. End-tidal was never above 21 during ACLS. Minimal PEA to asystole on repeat pulse checks (PEA for < 5 second then asystole). Per RN report, this is pts' fifth cardiac arrest while admitted. Is pending transfer to LTC facility on ventilator. Unable to obtain ROSC. Given multi organ failure, poor quality of life and with son/daughter in agreement at bedside, time of was called at 3:59 AM. Critical Care: Authorized and Performed by: Johnny Rosas DO Total critical care time: approximately 30 minutes Due to a high probability of clinically significant, life threatening deterioration, the patient required my highest level of preparedness to intervene emergently and I personally spent this critical care time directly and personally managing the patient. This critical care time included obtaining a history; examining the patient; pulse oximetry; ventilator management if necessary; ordering and review of studies; arranging urgent treatment with development of a management plan; evaluation of patient's response to treatment; frequent reassessment; discussion with patient/family; and, discussions with other providers. This critical care time was performed to assess and manage the high probability of imminent, life-threatening deterioration that could result in multi-organ failure. It was exclusive of separately billable procedures and treating other patients and teaching time. Please see MDM section and the rest of the note for further information on patient assessment and treatment. JOHNNY ROSAS DO Mar 14, 2020 20:05
--- NOTE | 2020-03-15 11:42 | DS ---
DATE OF DISCHARGE: 03/14/2020 HOSPITAL COURSE: The patient is an 85-year-old -[place] female patient who was admitted originally on 02/23/2020. She was admitted originally with acute hypoxic respiratory failure, acute kidney injury and community-acquired pneumonia with bronchiectasis exacerbation. She actually rapidly responded initially when she was in the 6th floor and eventually she was transferred to ICU where she has coded and basically coded twice there. MRI showed that she has multiple scattered infarct. 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 She was obviously intubated and mechanically ventilated. Her kidney function deteriorated and therefore, she was on hemodialysis and initially there was a plan for her to have a tracheostomy and gastrostomy tube; however, given that she continued to require vasopressors, she was not considered a candidate for that and once relatively stabilized, a decision was made to transfer her to [facility] to continue with mechanical ventilation, wean as tolerated, continue with hemodialysis, continue with IV antibiotic, continue with nutrition support. Unfortunately, the patient coded. She was being transferred to [facility] and was coded on the way to the ambulance and therefore, she was immediately brought to the Emergency Room. She was in cardiac arrest upon arrival and basically, her CPR was performed in the Emergency Room and received 2 rounds of epinephrine, amiodarone and was shocked once. She was in ventricular fibrillation upon arrival. She was continued on epinephrine and has received atropine twice in the Emergency Room due to significant bradycardia and the patient was readmitted to the ICU on 03/11/2020. She continued to be on mechanical ventilation and was seen in consultation by the nurse staff and the rest[employer] and Infectious Disease specialist and neurologist as well as senior clinical consultant. Unfortunately, she has the 4th code blue on 03/14/2020. Actually the patient became bradycardic and went into pulseless electrical activity arrest around 3:00 or 4:00 a.m. and the ACLS was started. The patient was given epinephrine, calcium bicarbonate and D50 glucose was 75. The patient had bilateral breath sounds. RN informed. The CPR was done under the direction of the ER physician, Dr. Maggi Rosas and basically returned of spontaneous circulation approximately 30 minutes into the ACLS and had sinus rhythm with first-degree AV block and tidal during CPR was around 35. The patient went into asystole around 3:00 in the morning and she was back and forth between sinus rhythm and pulseless electrical activity and was coded until 3:18 where she was in sinus bradycardia. The patient went to PEA at 3:33 and was coded until approximately 3:59. The code was called by the ED physician and family was present during the time of . FINAL CAUSE OF : Cardiopulmonary arrest. The patient had at least 2 non-ST segment elevation myocardial infarctions, acute hypoxic respiratory failure, acute on chronic kidney injury, severe anoxic encephalopathy and multiple cerebral infarct. OLAF MAXWELL MD DR: DARIAN/nataly JOB#: [id number] / [id number]
[2020-03-18] MEDS ORDERED: ERGOCALCIFEROL (VITAMIN D2) 50,000 UNIT CAPSULE. PO SCH (16:00)
== END 2020-03-14 03:59 | DRG 208 ==
LOC: ER 11:22 → 1 WEST ICU 12:42
PROVIDERS: ADMIT Internal Medicine; ATTEND Internal Medicine
PROC: 5A1945Z Respiratory Ventilation, 24-96 Consecutive Hours (ICD-10-PCS; principal; 2020-03-11)
PROC: 0BH17EZ Insertion of Endotracheal Airway into Trachea, Via Natural or Artificial Opening (ICD-10-PCS; 2020-03-11)
PROC: 5A12012 Performance of Cardiac Output, Single, Manual (ICD-10-PCS; 2020-03-11)
PROC: 5A1D70Z Performance of Urinary Filtration, Intermittent, Less than 6 Hours Per Day (ICD-10-PCS; 2020-03-12)
DX: J18.9 Pneumonia, unspecified organism (principal); J96.21 Acute and chronic respiratory failure with hypoxia; I21.4 Non-ST elevation (NSTEMI) myocardial infarction; E43 Unspecified severe protein-calorie malnutrition; G93.41 Metabolic encephalopathy; K72.00 Acute and subacute hepatic failure without coma; N17.0 Acute kidney failure with tubular necrosis; I63.9 Cerebral infarction, unspecified; E87.1 Hypo-osmolality and hyponatremia; G93.1 Anoxic brain damage, not elsewhere classified; I82.612 Acute embolism and thrombosis of superficial veins of left upper extremity; J44.0 Chronic obstructive pulmonary disease with (acute) lower respiratory infection; E87.2 Acidosis; Z68.41 Body mass index [BMI] 40.0-44.9, adult; I46.9 Cardiac arrest, cause unspecified; D64.9 Anemia, unspecified; D69.6 Thrombocytopenia, unspecified; E11.22 Type 2 diabetes mellitus with diabetic chronic kidney disease; E78.5 Hyperlipidemia, unspecified; E87.5 Hyperkalemia; F03.90 Unspecified dementia, unspecified severity, without behavioral disturbance, psychotic disturbance, mood disturbance, and anxiety; H54.62 Unqualified visual loss, left eye, normal vision right eye; I44.0 Atrioventricular block, first degree; I48.91 Unspecified atrial fibrillation; I95.9 Hypotension, unspecified; I49.01 Ventricular fibrillation; Z87.891 Personal history of nicotine dependence; Z99.2 Dependence on renal dialysis; Z90.49 Acquired absence of other specified parts of digestive tract; Z79.899 Other long term (current) drug therapy; N18.32 Chronic kidney disease, stage 3b; I12.9 Hypertensive chronic kidney disease with stage 1 through stage 4 chronic kidney disease, or unspecified chronic kidney disease
CPT/HCPCS: 36415; 36600; 71045; 80048; 80053; 82805; 82962; 83735; 85007; 85025; 87040; 92950; 93005; 94003; 96365; 96367; 96372; C9113; J0171; J0282; J0461; J0878; J1815; J2185; J2248; J2250; J2370; J2543; J3010; J3490; J7050; J7060; 99285-25; G0378; J7030